=== PATIENT | male | born 1950 | race Caucasian/White ===

== ENCOUNTER 2016-07-15 12:41 | Emergency (ER) | payer BC ==
[2016-07-15] MEDS ORDERED: METOCLOPRAMIDE 5 MG/ML 2 ML VIAL IVP STA (14:05)
[2016-07-15] MEDS ORDERED: HYDROmorphone 1 MG/ML 1 ML SYRINGE IVP STA (14:05)
[2016-07-15] MEDS ORDERED: SODIUM CHLORIDE 0.9% 1,000 ML IV ONE (14:27)
[2016-07-15 14:30] LABS: Basophils # (A) 0.1 k/uL (0-0.2); Basophils % (A) 0 %; CH 30.1; Eosinophils % (A) 0 %; HCT 47.2 % (39.0-53.0); HDW 2.44; Luc # (Auto) 0.06; Luc % (Auto) 0; Lymphocytes # (A) 0.6 k/uL (1.0-4.8); Lymphocytes % (A) 4 %; MCHC 33.8 g/dL (31.0-37.0); MCV 88.8 fL (80.0-100.0); Mean Platelet Volume 7.8; Monocytes # (A) 0.5 k/uL (0-1.0); Monocytes % (A) 3 %; Neutrophils # (A) 14.9 k/uL (1.3-7.7); Neutrophils % (A) 92 %; RBC 5.32 m/uL (4.30-5.90); RDW 12.5 % (11.5-15.5); WBC 16.2 k/uL (3.8-10.6); WBC (Perox) 15.56
[2016-07-15 14:39] LABS: ALT 32 U/L (21-72); AST 25 U/L (17-59); Alkaline Phosphatase 64 U/L (38-126); Amylase 70 U/L (30-110); Anion Gap 8 mmol/L; Blood Urea Nitrogen 26 mg/dL (9-20); Calcium 9.9 mg/dL (8.4-10.2); Carbon Dioxide 24 mmol/L (22-30); Chloride 111 mmol/L (98-107); Glucose 125 mg/dL (74-99); Non-African American GFR(MDRD) >60 (>60 ml/min/1.73 sqM); Potassium 4.5 mmol/L (3.5-5.1); Sodium 143 mmol/L (137-145); Total Bilirubin 0.8 mg/dL (0.2-1.3); Total Protein 7.4 g/dL (6.3-8.2)
--- NOTE | 2016-07-15 14:39 | ED ---
General Adult HPI - General Chief complaint: Abdominal Pain Stated complaint: Abd/Side Pain - Kidney Stones Time Seen by Provider: 07/15/16 13:31 Source: patient, family, RN notes reviewed Mode of arrival: wheelchair Limitations: no limitations - History of Present Illness Initial comments: Chief complaint history of present illness a 66-year-old male here with acute onset of discomfort starting at 6 AM to his left flank radiating around toward the left lower quadrant. He's noticed some blood in the urine when he urinated this morning. He does have a history of having had kidney stones in the past, last was 15 years ago. He's passed stones over 6 times in his life. He became nauseated and vomited at home. Patient denies fever. - Related Data Home Medications Medication Instructions Recorded Confirmed Aspirin 325 mg PO HS 04/09/15 07/15/16 Hydrocodone/Acetaminophen 1 tab PO DAILY PRN 04/09/15 07/15/16 [Hydrocodon-Acetaminophn 10-325] Metoprolol Tartrate [Metoprolol 25 mg PO BID 04/09/15 07/15/16 Tartrate] Simvastatin [Simvastatin] 40 mg PO HS 04/09/15 07/15/16 Previous Rx's Medication Instructions Recorded Hydrocodone/Acetaminophen [[place] 1 each PO Q6HR PRN #30 tab 07/15/16 5-325] Ondansetron Odt [Zofran ODT] 4 mg PO Q8HR PRN #10 tab 07/15/16 Tamsulosin [Flomax] 0.4 mg PO DAILY #14 cap 07/15/16 Allergies Allergy/AdvReac Type Severity Reaction Status Date / Time No Known Allergies Allergy Verified 07/15/16 13:51 Review of Systems ROS Statement: Those systems with pertinent positive or pertinent negative responses have been documented in the HPI. Review of systems. No headache or visual acuity changes no chest pain or shortness of breath. The patient has left flank discomfort atrial toward the front. Nausea vomiting. No diarrhea. No complaint of any neuro deficits. All systems are reviewed. Past medical problems significant for frequent kidney stones. The last time 15 years ago. Patient also has hyperlipidemia, hypertension, and [place] 8 years ago, chronic back pain. And history of hepatitis. He reported when he was younger he did do IV drugs. He was told to talk her family doctor about hepatitis C testing as well. The patient's surgeries include tonsils, he's had 4 stents 2 different occasions. The patient's family history skin cancer and heart disease. Patient denies ALLERGIES uses medical marijuana card. Drinks alcohol occasionally socially. Advised with hepatitis alcohol should be stopped entirely. ROS Other: All systems not noted in ROS Statement are negative. Past Medical History Past Medical History: Hyperlipidemia, Hypertension, Myocardial Infarction ([place]), Musculoskeletal Disorder, Osteoarthritis ([place]) Additional Past Medical History / Comment(s): HX OF HEPATITIS, BACK PAIN, SCOLIOSIS, TORN RIGHT ROTATOR CUFF. Last Myocardial Infarction Date:: 2008 History of Any Multi-Drug Resistant Organisms: None Reported Past Surgical History: Ear Surgery, Heart Catheterization With Stent Additional Past Surgical History / Comment(s): PLASTIC SURGERY ON EAR A CHILD., 2 HEART CATHS WITH STENTS. Past Anesthesia/Blood Transfusion Reactions: No Reported Reaction, Motion Sickness Date of Last Stent Placement:: 2008 Past Psychological History: No Psychological Hx Reported Smoking Status: Never smoker Past Alcohol Use History: Rare Past Drug Use History: Marijuana Additional Drug Use History / Comment(s): LAST MARIJUANA 04/08/2015 - Past Family History Father Family Medical History: Cancer, Coronary Artery Disease (CAD), Myocardial Infarction ([place]) Additional Family Medical History / Comment(s): SKIN CANCER Mother Family Medical History: Cancer Additional Family Medical History / Comment(s): SKIN CANCER General Exam - General Exam Comments Initial Comments: General: The patient is awake and alert, playing of nausea vomiting and left flank pain with red urine. All this started at 6 AM. No signs are temperature 98.3 pulse 90 respiratory rate 18 pulse ox 90% room air blood pressure 143/85 Eye: Pupils are equal, round and reactive to light, extra-ocular movements are intact ; there is normal conjunctiva bilaterally. No signs of icterus. Ears, nose, mouth and throat: There are moist mucous membranes and no oral lesions. Neck: The neck is supple, there is no tenderness or JVD. Cardiovascular: There is a regular rate and rhythm. No murmur, rub or gallop is appreciated. Respiratory: Lungs are clear to auscultation, respirations are non-labored, breath sounds are equal. No wheezes, stridor, rales, or rhonchi. Gastrointestinal: Soft, non-distended, non-tender abdomen without masses or organomegaly noted. There is no rebound or guarding present. Left CVA tenderness started this morning. No rash noted. Back: There is no tenderness to palpation in the midline. There is no obvious deformity. No rashes noted. No rashes noted. Early shingles was discussed. Musculoskeletal: Normal ROM, no tenderness, There is no pedal edema. There is no calf tenderness or swelling. Sensation intact. Pulses equal bilaterally 2+. Neurological: No neuro deficits. Alert and oriented. Skin: Skin is warm and dry and no rashes or lesions are noted. Limitations: no limitations Course Vital Signs 07/15/16 13:13 Temperature 98.3 F Pulse Rate 90 Respiratory 18 Rate Blood Pressure 143/85 O2 Sat by Pulse 98 Oximetry Medical Decision Making - Medical Decision Making Medical decision making the patient's white count 16.2 hemoglobin 16 hematocrit 47. Potassium is 4.5, BUN 26 creatinine 1.1 and GFR greater than 60. Glucose 125. Urine shows greater than 180 rbc's. Patient was made comfortable with IV fluids and analgesics and antinausea medication. X-ray of the abdomen was done and reviewed radiologist his impression is scattered gas is seen in nondistended small bowel loops. Gas and fecal material seen in nondistended colon. No suspicious calcifications are clearly seen. There is level convex scoliosis centered at L3 level. A vascular calcification overlies the mid abdomen. Lung bases are grossly clear. No pneumoperitoneum is seen. Impression; overall nonobstructive bowel gas pattern and no definite nephrolithiasis. As read by Dr. jeffrey Is time patient's feeling much better no nausea no vomiting minimal to no discomfort. The patient be placed on Flomax, Zofran to control nausea and [place] for pain. A strainer will be given to the patient strain the urine. He was advised to call follow-up family physician and on-call urologist if the pain were to persist. He's report fever to his family doctor or return emergency room. - Lab Data Result diagrams: 07/15/16 13:55 07/15/16 13:55 Lab Results 07/15/16 07/15/16 07/15/16 Range/Units 13:55 13:55 14:56 WBC 16.2 H (3.8-10.6) k/uL RBC 5.32 (4.30-5.90) m/uL Hgb 16.0 (13.0-17.5) gm/dL Hct 47.2 (39.0-53.0) % MCV 88.8 (80.0-100.0) fL MCH 30.0 (25.0-35.0) pg MCHC 33.8 (31.0-37.0) g/dL RDW 12.5 (11.5-15.5) % Plt Count 151 (150-450) k/uL Neutrophils % 92 % Lymphocytes % 4 % Monocytes % 3 % Eosinophils % 0 % Basophils % 0 % Neutrophils # 14.9 H (1.3-7.7) k/uL Lymphocytes # 0.6 L (1.0-4.8) k/uL Monocytes # 0.5 (0-1.0) k/uL Eosinophils # 0.0 (0-0.7) k/uL Basophils # 0.1 (0-0.2) k/uL Sodium 143 (137-145) mmol/L Potassium 4.5 (3.5-5.1) mmol/L Chloride 111 H (98-107) mmol/L Carbon Dioxide 24 (22-30) mmol/L Anion Gap 8 mmol/L BUN 26 H (9-20) mg/dL Creatinine 1.10 (0.66-1.25) mg/dL Est GFR (MDRD) Af Amer >60 (>60 ml/min/1.73 sqM) Est GFR (MDRD) Non-Af >60 (>60 ml/min/1.73 sqM) Glucose 125 H (74-99) mg/dL Calcium 9.9 (8.4-10.2) mg/dL Total Bilirubin 0.8 (0.2-1.3) mg/dL AST 25 (17-59) U/L ALT 32 (21-72) U/L Alkaline Phosphatase 64 (38-126) U/L Total Protein 7.4 (6.3-8.2) g/dL Albumin 4.4 (3.5-5.0) g/dL Amylase 70 (30-110) U/L Lipase 106 (23-300) U/L Urine Color Yellow Urine Appearance Clear (Clear) Urine pH 6.5 (5.0-8.0) Ur Specific [place] 1.017 (1.001-1.035) Urine Protein Trace H (Negative) Urine Glucose (UA) Negative (Negative) Urine Ketones 1+ H (Negative) Urine Blood Moderate H (Negative) Urine Nitrite Negative (Negative) Urine Bilirubin Negative (Negative) Urine Urobilinogen <2.0 (<2.0) mg/dL Ur Leukocyte Esterase Negative (Negative) Urine RBC >182 H (0-5) /hpf Urine WBC 5 (0-5) /hpf Urine Mucus Occasional H (None) /hpf Disposition Clinical Impression: Kidney stone on left side Disposition: HOME SELF-CARE Condition: Fair Instructions: Kidney Stones (ED) Additional Instructions: Increase fluids, take medications as directed. Return emergency room if he develop fever. Follow-up family doctor Prescriptions: Hydrocodone/Acetaminophen [[place] 5-325] 1 each PO Q6HR PRN #30 tab PRN Reason: Pain Ondansetron Odt [Zofran ODT] 4 mg PO Q8HR PRN #10 tab PRN Reason: Nausea Tamsulosin [Flomax] 0.4 mg PO DAILY #14 cap Time of Disposition: 17:21
[2016-07-15 15:15] LABS: Appearance,Urine Clear (Clear); Bilirubin,Urine Negative (Negative); Glucose,Urine (UA) Negative (Negative); Ketones,Urine 1+ (Negative); Leukocyte Esterase,Urine Negative (Negative); Mucus,Urine Occasional /hpf; Nitrite,Urine Negative (Negative); PH, Urine 6.5 (5.0-8.0); Particle Count 4035; Protein,Urine Trace (Negative); RBC,Urine >182 /hpf (0-5); Specific Gravity,Urine 1.017 (1.001-1.035); UA Billing (MACRO vs. MICRO) MICRO; Urobilinogen,Urine <2.0 mg/dL (<2.0); WBC,Urine 5 /hpf (0-5)
--- NOTE | 2016-07-15 15:15 | XR ---
EXAMINATION TYPE: XR KUB DATE OF EXAM: 07/15/2016 3:06 PM CLINICAL HISTORY: Right greater than left flank pain since this morning. TECHNIQUE: 2 upright KUB images of the abdomen are obtained. COMPARISON: None. FINDINGS: Scattered gas is seen in non-distended small bowel loops. Gas and fecal material is seen in non-distended colon. No suspicious calcifications are clearly seen. There is levoconvex scoliosis centered at L3 level. Vascular calcification overlies the mid abdomen. Lung bases are grossly clear. No pneumoperitoneum is seen. IMPRESSION: Overall nonobstructive bowel gas pattern. No definite nephrolithiasis.
[2016-07-15 17:34] VITALS: RESP 20
[2016-07-15 17:35] VITALS: BP 130/68; PULSE 89; TEMP 98.4
== END 2016-07-15 17:35 | disposition home or self-care (01) ==
LOC: EC 12:41
DX: N20.0 Calculus of kidney (principal); M41.86 Other forms of scoliosis, lumbar region; I87.8 Other specified disorders of veins; E78.5 Hyperlipidemia, unspecified; I10 Essential (primary) hypertension; M19.90 Unspecified osteoarthritis, unspecified site; I25.2 Old myocardial infarction; Z79.82 Long term (current) use of aspirin; Z79.899 Other long term (current) drug therapy
CPT/HCPCS: 99284; 96374; 96375; 96361; 36415; 80053; 82150; 83690; 85025; 81001; 87086; 74000; J2765; J1170

== ENCOUNTER → 2016-08-26 | Outpatient (CLI) | payer BC ==
--- NOTE | 2016-08-26 09:41 | US ---
EXAMINATION TYPE: US kidneys/renal and bladder DATE OF EXAM: 08/26/2016 COMPARISON: Previous study dated 10/27/2014. CLINICAL HISTORY: Renal Mass D41.02, R31.9 Hematuria. Left renal mass EXAM MEASUREMENTS: Right Kidney: 10.1 x 5.7 x 5.6 cm Left Kidney: 11.1 x 4.8 x 4.8 cm Right Kidney: 0.4cm echogenic focus mid pole Left Kidney: 1.3cm cystic area lateral inferior pole Bladder: wnl Bilateral Jets seen: yes There is a 1.2 cm mass in the lower pole of the left kidney, essentially unchanged from previous. The lesion identified on the right is believed to represent normal renal sinus fat. There is no evidence of hydronephrosis. IMPRESSION: STABLE LOWER POLE LESION OF THE LEFT KIDNEY.
== END | disposition home or self-care (01) ==
LOC: RADUSWWP 07:59
PROVIDERS: ATTEND Urology
DX: D41.02 Neoplasm of uncertain behavior of left kidney (principal); N28.9 Disorder of kidney and ureter, unspecified
CPT/HCPCS: 76770

== ENCOUNTER 2018-04-28 13:26 | Observation (INO) | payer MEDICARE, OTHER ==
[2018-04-28] MEDS ORDERED: ASPIRIN 81 MG PO STA (14:32)
[2018-04-28 15:05] LABS: Basophils % (A) 0 %; Eosinophils # (A) 0.2 k/uL (0-0.7); Eosinophils % (A) 2 %; HCT 46.8 % (39.0-53.0); HGB 15.7 gm/dL (13.0-17.5); Lymphocytes # (A) 1.8 k/uL (1.0-4.8); Lymphocytes % (A) 21 %; MCH 29.2 pg (25.0-35.0); MCHC 33.5 g/dL (31.0-37.0); MCV 87.3 fL (80.0-100.0); Mean Platelet Volume 7.2; Monocytes # (A) 0.6 k/uL (0-1.0); Monocytes % (A) 7 %; Neutrophils # (A) 5.9 k/uL (1.3-7.7); Neutrophils % (A) 68 %; Platelet Count 200 k/uL (150-450); RBC 5.36 m/uL (4.30-5.90); RDW 12.5 % (11.5-15.5); WBC 8.8 k/uL (3.8-10.6)
[2018-04-28 15:13] LABS: Amorphous Sediment,Urine Few /hpf; Appearance,Urine Cloudy (Clear); Bilirubin,Urine Negative (Negative); Blood,Urine Negative (Negative); Color,Urine Yellow; Glucose,Urine (UA) Negative (Negative); Ketones,Urine Negative (Negative); Leukocyte Esterase,Urine Negative (Negative); Mucus,Urine Rare /hpf; Nitrite,Urine Negative (Negative); PH, Urine 6.5 (5.0-8.0); Protein,Urine Negative (Negative); Specific Gravity,Urine 1.015 (1.001-1.035); Urobilinogen,Urine <2.0 mg/dL (<2.0); WBC,Urine <1 /hpf (0-5)
[2018-04-28 15:21] LABS: INR 0.9 (<1.2); Partial Thromboplastin Time 22.8 sec (22.0-30.0)
[2018-04-28 15:31] LABS: Albumin 4.1 g/dL (3.5-5.0); Calcium 9.7 mg/dL (8.4-10.2); Creatine Kinase 86 U/L (55-170); Magnesium 2.1 mg/dL (1.6-2.3); Potassium 4.4 mmol/L (3.5-5.1); Total Bilirubin 0.5 mg/dL (0.2-1.3)
--- NOTE | 2018-04-28 15:37 | XR ---
EXAMINATION TYPE: XR chest 2V DATE OF EXAM: 04/28/2018 COMPARISON: 01/18/2018 HISTORY: Chest pain for 3 weeks TECHNIQUE: Frontal and lateral views of the chest are obtained. FINDINGS: There is no focal air space opacity, pleural effusion, or pneumothorax seen. The cardiac silhouette size is within normal limits. The osseous structures are intact. Minimal multilevel dege nerative changes of the spine are noted as well as healed fracture deformities of the posterior lower right ribs IMPRESSION: No acute cardiopulmonary process.
[2018-04-28 15:42] LABS: Creatine Kinase MB 0.7 ng/mL (0.0-2.4); Troponin I <0.012 ng/mL (0.000-0.034)
--- NOTE | 2018-04-28 16:28 | ED ---
Chest Pain HPI - General Chief Complaint: Chest Pain Stated Complaint: Chest pain Time Seen by Provider: 04/28/18 14:03 Source: patient, RN notes reviewed, old records reviewed Mode of arrival: ambulatory Limitations: no limitations - History of Present Illness Initial Comments: Patient is a 7-year-old male with history of coronary artery disease presents to take 1 chest pain. He reports pain rated some left arm and does report increased fatigue first of breath on exertion. He has 4 stents placed 10 years ago, patient technology coordinator is Dr. Holguin. Patient reports she's had intermittent chest pain for one week. - Related Data Home Medications Medication Instructions Recorded Confirmed Metoprolol Tartrate 25 mg PO BID 04/09/15 01/19/18 Simvastatin 40 mg PO HS 04/09/15 01/19/18 Aspirin EC [Ecotrin Low Dose] 162 mg PO DAILY 01/18/18 01/19/18 Previous Rx's Medication Instructions Recorded Meclizine [Antivert] 12.5 mg PO Q8HR #15 tablet 01/19/18 Allergies Allergy/AdvReac Type Severity Reaction Status Date / Time No Known Allergies Allergy Verified 04/28/18 13:30 Review of Systems ROS Statement: Those systems with pertinent positive or pertinent negative responses have been documented in the HPI. ROS Other: All systems not noted in ROS Statement are negative. EKG Findings - EKG Comments: EKG Findings:: EKG shows sinus rhythm multiple [place] here for LVH. Inferior infarct age indeterminate. Abnormal EKG. Ventricular rate of 62 bpm. Will is 162. Respiration one week. QTQTC is 396/401. Past Medical History Past Medical History: Hyperlipidemia, Hypertension, Myocardial Infarction ([place]), Musculoskeletal Disorder, Osteoarthritis ([place]) Additional Past Medical History / Comment(s): HX OF HEPATITIS, BACK PAIN, SCOLIOSIS, TORN RIGHT ROTATOR CUFF. Last Myocardial Infarction Date:: 2008 History of Any Multi-Drug Resistant Organisms: None Reported Past Surgical History: Ear Surgery, Heart Catheterization With Stent Additional Past Surgical History / Comment(s): PLASTIC SURGERY ON EAR A CHILD., 2 HEART CATHS WITH STENTS. 4 stents Past Anesthesia/Blood Transfusion Reactions: Motion Sickness Date of Last Stent Placement:: 2008 Past Psychological History: No Psychological Hx Reported Smoking Status: Never smoker Past Alcohol Use History: Rare Past Drug Use History: Marijuana - Past Family History Father Family Medical History: Cancer, Coronary Artery Disease (CAD), Myocardial Infarction ([place]) Additional Family Medical History / Comment(s): SKIN CANCER Mother Family Medical History: Cancer Additional Family Medical History / Comment(s): SKIN CANCER General Exam - General Exam Comments Initial Comments: A pleasant 67-year-old male. Limitations: no limitations General appearance: alert, in no apparent distress Head exam: Present: atraumatic, normocephalic, normal inspection Eye exam: Present: normal appearance, PERRL, EOMI. Absent: scleral icterus, conjunctival injection, periorbital swelling ENT exam: Present: normal exam, mucous membranes moist Neck exam: Present: normal inspection. Absent: tenderness, meningismus, lymphadenopathy Respiratory exam: Present: normal lung sounds bilaterally. Absent: respiratory distress, wheezes, rales, rhonchi, stridor Cardiovascular Exam: Present: regular rate, normal rhythm, normal heart sounds. Absent: systolic murmur, diastolic murmur, rubs, gallop, clicks GI/Abdominal exam: Present: soft, normal bowel sounds. Absent: distended, tenderness, guarding, rebound, rigid Extremities exam: Present: normal inspection, full ROM, normal capillary refill. Absent: tenderness, pedal edema, joint swelling, calf tenderness Back exam: Present: normal inspection Neurological exam: Present: alert, oriented X3, CN II-XII intact Psychiatric exam: Present: normal affect, normal mood Skin exam: Present: warm, dry, intact, normal color. Absent: rash Course Vital Signs 04/28/18 04/28/18 04/28/18 13:27 15:00 15:30 Temperature 98.6 F Pulse Rate 65 60 66 Respiratory 18 Rate Blood Pressure 143/86 143/91 123/90 O2 Sat by Pulse 98 96 94 L Oximetry 04/28/18 04/28/18 16:00 16:30 Temperature Pulse Rate 60 Respiratory Rate Blood Pressure 132/82 130/84 O2 Sat by Pulse 98 95 Oximetry Chest Pain MDM - MDM 67-year-old male presents razor was with intermittent chest pain unstable angina. He sentences symptoms of been progressive for the past week. He reports emergency department today with continued chest pain. EKG does show some increased T-wave inversion over lead 3. Patient reports he has not had a stress test and quite some time. He does have history of coronary artery disease and had [address] Holguin approximately 10 years ago. At this time Patient will be admitted for repeat troponins and ACS evaluation. Consult to cardiology. Disposition Clinical Impression: Chest pain Disposition: ADMITTED IP TO THIS HOSP Condition: Stable Is patient prescribed a controlled substance at d/c from ED?: No Referrals: Atilio Lott MD [Primary Care Provider] - 1-2 days Time of Disposition: 17:31
[2018-04-28] MEDS ORDERED: NITROGLYCERIN SL TABS 0.4 MG TAB SUBLINGUAL PRN (17:31)
[2018-04-28 20:13] VITALS: BMI 26.6
[2018-04-28] MEDS ORDERED: ASPIRIN 81 MG PO SCH (21:00)
[2018-04-28] MEDS: METOPROLOL TARTRATE 25 MG TAB PO SCH (21:10)
[2018-04-28 21:45] LABS: Creatine Kinase 69 U/L (55-170)
[2018-04-28 21:56] LABS: Creatine Kinase MB 0.6 ng/mL (0.0-2.4); Troponin I <0.012 ng/mL (0.000-0.034)
[2018-04-29 03:26] LABS: Cholesterol 234 mg/dL (<200); HDL Cholesterol 40 mg/dL (40-60); LDL Cholesterol,Calculated 161 mg/dL (0-99); Triglycerides 167 mg/dL (<150)
[2018-04-29 03:34] LABS: Creatine Kinase 77 U/L (55-170)
[2018-04-29 03:46] LABS: Creatine Kinase MB 0.6 ng/mL (0.0-2.4); Troponin I <0.012 ng/mL (0.000-0.034)
[2018-04-29] MEDS ORDERED: ASPIRIN 325 MG TAB PO SCH (09:00)
--- NOTE | 2018-04-29 09:30 | CONS ---
CONSULTATION Mr. Araya is a 67-year-old male with history of hypertension who presented to the emergency room with symptoms of chest discomfort. The patient has a known history of coronary artery disease, underwent stenting about 10 years ago, has been followed in the past by Dr. Holguin, but has not seen him in about a year. He presented with symptoms of chest discomfort. The discomfort has been going on for the last week, at times, worse in certain position. It is not associated with physical activity, not associated with dyspnea, dizziness or palpitation. He is active physically without significant difficulty. He feels the discomfort is worse when he lays supine, better in certain positions. He had an echocardiogram in January of last year that revealed an ejection fraction of 50% to 55% with no significant valvular disease. The patient denies any PND, orthopnea, or peripheral edema. His coronary risk factors are remarkable for hypertension he is nondiabetic, nonsmoker. MEDICATION: At home include aspirin, metoprolol tartrate 25 mg twice a day. REVIEW OF SYSTEMS: Respiratory system: He has no documented history of asthma, emphysema or bronchitis. GI system: No recent GI bleed. No peptic ulcer disease. system: No dysuria or hematuria. Nervous system: No stroke or seizure. PHYSICAL EXAMINATION: He is a 67-year-old male, alert, oriented, in no apparent distress. Blood pressure 115/81 with heart rate in the 60s. HEAD: Normocephalic. Eyes sclerae anicteric. Neck good carotid upstroke. No bruit. No jugular venous distention. Lungs clear to auscultation. Heart regular rate and rhythm, S1, S2. No S3. No S4. Systolic murmur. ABDOMEN: Soft, nontender. Positive bowel sounds. No organomegaly. EXTREMITIES: No edema. Intact distal pulses. LAB DATA: Lab data revealed troponin less than 0.012 for 3 samples. BUN and creatinine of 27 and 1.02. Cholesterol 234, LDL of 161, hemoglobin of 15.7. EKG revealed a sinus mechanism. Normal axis and intervals with T-wave inversion in the inferior leads with evidence of inferior myocardial infarction. IMPRESSION: 1. Chest discomfort, has some atypical features for ischemic heart disease in a patient with known history of coronary disease. 2. Hyperlipidemia not treated. 3. Hypertension. 4. Prior stenting done 10 years ago, probably to the right coronary artery in the setting of myocardial infarction. RECOMMENDATION: From the cardiac standpoint, I will add to his regimen atorvastatin 40 mg daily. I have recommended proceeding with myocardial perfusion imaging as well as an echocardiogram to further assess his status and guide his treatment. The rationale behind the plan was discussed with him in full understanding and agreement. If he has evidence of inducible ischemia, then coronary angiography will be needed. Thank you for this consult. We will follow with you. MMERENL / IJN: [id number] /
[2018-04-29] MEDS: METOPROLOL TARTRATE 25 MG TAB PO SCH ×2 (09:31→20:24)
[2018-04-29] MEDS ORDERED: ALPRAZolam 0.25 MG TAB PO PRN (14:32)
[2018-04-29] MEDS ORDERED: MELATONIN 3 MG TABLET PO PRN (14:32)
[2018-04-29] MEDS ORDERED: MAGNESIUM HYDROXIDE 2,400 MG/10 ML CUP PO PRN (14:32)
[2018-04-29] MEDS ORDERED: NALOXONE 0.4 MG/ML 1 ML VIAL IV PRN (14:32)
[2018-04-29] MEDS ORDERED: ACETAMINOPHEN TAB 325 MG TAB PO PRN (14:32)
[2018-04-29] MEDS ORDERED: ONDANSETRON 4 MG/2 ML VIAL IVP PRN (14:32)
[2018-04-29] MEDS ORDERED: LACTULOSE 20 GM/30 ML CUP PO PRN (14:32)
[2018-04-29] MEDS ORDERED: CALCIUM CARBONATE 500 MG CHEWABLE PO PRN (14:32)
--- NOTE | 2018-04-29 15:12 | HP ---
HISTORY AND PHYSICAL DATE OF ADMISSION: 04/28/2018 DATE OF SERVICE: 04/29/18. PRESENT COMPLAINT: Chest pain. HISTORY OF PRESENTING COMPLAINT: This is a very pleasant 67-year-old patient follows with Dr. Damian Lott out of [facility]. Chronic stable medical conditions include hypertension, hyperlipidemia, osteoarthritis. The patient had coronary artery disease with stent about 10 years ago. The patient has not had any further acute coronary syndrome since then. The patient for 2 weeks has been having left precordial chest pain, present on and off. It seems to be more when he is reclining and somewhat better when he is sitting up. He is occasionally short of breath. No fever. No chills. No swelling of the lower extremity. He states he feels slightly somewhat like his prior heart attack he had several years ago, decided to present to the ER. The patient admitted for further cardiac workup. The patient is currently chest pain free. The patient's troponins were negative. The pain does not radiate. There was no dizziness. No lightheadedness. REVIEW OF SYSTEMS: CONSTITUTIONAL: None. HEENT: None. CARDIOVASCULAR: As above RESPIRATORY: None. GASTROINTESTINAL: None. GENITOURINARY: None. MUSCULOSKELETAL: Pain in the joints. DERMATOLOGICAL, HEMATOLOGIC, LYMPHATIC: none. PSYCHIATRY none. NEUROLOGICAL: None. PAST MEDICAL HISTORY: Hyperlipidemia, hypertension, coronary artery disease with stent, osteoarthritis, hepatitis, right rotator cuff torn. PAST SURGICAL HISTORY: Cardiac cath with stent 10 years ago. Plastic surgery in the ear as a child. Stents in 2008. SOCIAL HISTORY: Does not smoke. Alcohol rarely. Lives with this girlfriend, is a house painter helper by trade. FAMILY HISTORY: Coronary artery disease with skin cancer. HOME MEDICATIONS: 1. Metoprolol 25 mg b.i.d. 2. Aspirin 81 mg b.i.d. ALLERGIES: None. PHYSICAL EXAMINATION: VITAL SIGNS: Vital signs on presentation: Temperature 98.6, pulse 55, respiratory 18, blood pressure 143/86, pulse ox 98% on room air. GENERAL APPEARANCE: Average built, sitting up in a chair. Comfortable. EYES: Pupils equal. Conjunctivae normal. HEENT: External appearance of nose and ears normal. Oral cavity normal. NECK: JVD not raised. Mass not palpable. RESPIRATORY: Effort normal. LUNGS: Fair air entry. CARDIOVASCULAR: First and second sounds normal. No edema. ABDOMEN: Soft, nontender. Liver and spleen not palpable. LYMPHATICS: No lymph nodes palpable in the neck and axilla. PSYCHIATRY: Alert and oriented x3. Mood and affect normal. NEUROLOGICAL: Pupils equal. Cranial nerves grossly intact. Power and sensation grossly intact. INVESTIGATIONS: White count 8.8, hemoglobin 15.7, potassium 4.4, BUN 27, creatinine 1.02. Troponin x3 negative. LDL 161. EKG tracing personally reviewed by me shows normal sinus rhythm with deep Q-waves in the inferior leads. Chest x-ray film personally reviewed by me shows borderline cardiomegaly. Lung hart are clear. ASSESSMENT: 1. Anterior chest wall pain in a patient with known coronary artery disease, somewhat atypical but given his symptoms, need to rule out underlying cardiac ischemia. 2. Essential hypertension. 3. Hyperlipidemia. 4. Coronary artery with stent 10 years ago. 5. Primary osteoarthritis. PLAN: Home medications resumed. Serial cardiac enzymes were noted. The patient also put on Lipitor. Seen by Cardiology, Dr. Solis. The patient will be proceeding with a nuclear stress test tomorrow and an echocardiogram. Care was discussed with the patient. Copy to Dr. Damian Lott [facility]. MMODL / IJN: [id number] /
[2018-04-29] MEDS: ENOXAPARIN 40 MG/0.4 ML SYRINGE SQ SCH (15:13)
[2018-04-30] MEDS ORDERED: ATORVASTATIN 40 MG TAB PO SCH (09:00)
[2018-04-30] MEDS ORDERED: ASPIRIN 81 MG PO SCH (09:00)
--- NOTE | 2018-04-30 10:48 | ECHOF ---
Referral Reason:cp MEASUREMENTS -------- HEIGHT: 175.3 cm WEIGHT: 81.6 kg BP: 126/75 RVIDd: 3.1 cm (< 3.3) IVSd: 1.3 cm (0.6 - 1.1) LVIDd: 4.1 cm (3.9 - 5.3) LVPWd: 1.3 cm (0.6 - 1.1) IVSs: 1.7 cm LVIDs: 3.0 cm LVPWs: 1.8 cm LA Diam: 3.5 cm (2.7 - 3.8) LAESV Index (A-L): 16.53 ml/m Ao Diam: 3.4 cm (2.0 - 3.7) AV Cusp: 2.3 cm (1.5 - 2.6) MV EXCURSION: 13.991 mm (> 18.000) MV EF SLOPE: 72 mm/s (70 - 150) EPSS: 0.7 cm MV E Ahmet: 0.59 m/s MV DecT: 221 ms MV A Ahmet: 0.58 m/s MV E/A Ratio: 1.02 AR PHT: 780 ms RAP: 5.00 mmHg RVSP: 15.84 mmHg FINDINGS -------- Sinus rhythm. This was a technically good study. The left ventricular size is normal. There is mild concentric left ventricular hypertrophy. Overa ll left ventricular systolic function is normal with, an EF between 60 - 65 %. The right ventricle is normal in size. Normal LA size by volume 22+/-6 ml/m2. The right atrium is normal in size. The aortic valve is trileaflet and appears structurally normal. There is mild aortic regurgitation. The mitral valve is normal. Mild tricuspid regurgitation present. Right ventricular systolic pressure is normal at < 35 mmHg. Trace/mild (physiologic) pulmonic regurgitation. The aortic root size is normal. Normal inferior vena cava with normal inspiratory collapse consistent with estimated right atrial pre ssure of 5 mmHg. There is no pericardial effusion. CONCLUSIONS -------- 1. Sinus rhythm. 2. This was a technically good study. 3. The left ventricular size is normal. 4. There is mild concentric left ventricular hypertrophy. 5. Overall left ventricular systolic function is normal with, an EF between 60 - 65 %. 6. The right ventricle is normal in size. 7. Normal LA size by volume 22+/-6 ml/m2. 8. The right atrium is normal in size. 9. The aortic valve is trileaflet and appears structurally normal. 10. There is mild aortic regurgitation. 11. The mitral valve is normal. 12. Mild tricuspid regurgitation present. 13. Right ventricular systolic pressure is normal at < 35 mmHg. 14. Trace/mild (physiologic) pulmonic regurgitation. 15. The aortic root size is normal. 16. Normal inferior vena cava with normal inspiratory collapse consistent with estimated right atrial pressure of 5 mmHg. 17. There is no pericardial effusion. KAYAK MAKER: Vilma Ruiz RDCS
[2018-04-30] MEDS: METOPROLOL TARTRATE 25 MG TAB PO SCH (10:50)
[2018-04-30] MEDS: ENOXAPARIN 40 MG/0.4 ML SYRINGE SQ SCH (10:50)
--- NOTE | 2018-04-30 11:02 | P.PN ---
Subjective This is a pleasant 67-year-old male past medical history significant for hypertension and coronary artery disease. He follows in the office with Dr. Holguin. He presented to the hospital with symptoms of chest discomfort. This pain has been going on for approximately one week and has some association with position changes. He continues to feel a vague sharp discomfort in the midsternal region with no radiation to the arm, back, neck or jaw. He denies associated shortness of breath, dizziness, palpitations, nausea, vomiting or diaphoresis. Echocardiogram obtained reveals preserved left ventricular systolic function with ejection fraction 60-65%, mild tricuspid regurgitation noted. Blood pressure 112/70 heart rate 64 afebrile maintaining oxygen saturation on room air. He underwent Cardiolite stress test this morning, results pending. Currently maintained on aspirin 81 mg daily, atorvastatin 40 mg daily, Lopressor 25 mg twice a day. Atorvastatin was started yesterday for elevated cholesterol. GENERAL: Well-appearing, well-nourished and in no acute distress. NECK: Supple without JVD or thyromegaly. LUNGS: Breath sounds clear to auscultation bilaterally. Respiration equal and unlabored. No wheezes, rales or rhonchi. HEART: Regular rate and rhythm without murmurs, rubs or gallops. S1 and S2 heard. EXTREMITIES: Normal range of motion, no edema. No clubbing or cyanosis. Peripheral pulses intact. ASSESSMENT Chest pain, atypical. Acute coronary event has been ruled out. Dyslipidemia, uncontrolled. Statin started yesterday. History of coronary artery disease status post stent placement approximately 10 years ago to the RCA in the setting of myocardial infarction Hypertension PLAN Echocardiogram has been obtained and reviewed. Stress test has been performed and will be reviewed. If stress test is normal he is stable from a cardiac perspective to be discharged home and follow-up with Dr. Holguin in 2-3 weeks. If abnormal we will consider coronary angiography. Continue aspirin and lopressor as previously ordered. Nurse Practitioner note has been reviewed, I agree with a documented findings and plan of care. Patient was seen and examined. Objective - Vital Signs Vital signs: Vital Signs Temp 97.8 F 04/30/18 07:35 Pulse 64 04/30/18 07:35 Resp 16 04/30/18 07:35 BP 112/70 04/30/18 07:35 Pulse Ox 95 04/30/18 07:35 Intake & Output 04/29/18 04/30/18 04/30/18 18:59 06:59 18:59 Weight 81.647 kg Other: Voiding Method Toilet Toilet # Voids 2 1 - Labs CBC & Chem 7: 04/28/18 14:30 04/28/18 14:30
--- NOTE | 2018-04-30 11:27 | NM ---
EXAMINATION TYPE: NM stress cardiolite complete DATE OF EXAM: 04/30/2018 COMPARISON: NONE HISTORY: Chest pain TECHNIQUE: After the intravenous administration of 9.92 mCi Tc 99m Sestamibi - Rest images obtained 45 minutes post injection. The patient exercised using a JULEE protocol and 1 minute prior to peak exercise was injected with 26 mCi Tc 99m Sestamibi - Stress images obtained 10 minutes post injection . FINDINGS: There is diminished radiotracer on resting and stress images within the inferior lateral wa ll in be some prior mild infarct. No stress-induced ischemic changes evident. Remaining radiotracer d istribution appears normal. Wall motion appears normal. Ejection fraction of 57% is normal. IMPRESSION: 1. Clinical consideration for prior infarct along the inferior lateral wall is recommended. Correlate with EKG changes. 2. No stress-induced ischemic changes.
--- NOTE | 2018-04-30 11:37 | EST ---
EXERCISE STRESS AGE: 67 SEX: M HT: 69" WT: 180 PROTOCOL: Cardiolite Oliver Stress Test STAGE: II DURATION OF EXERCISE: 8:45 HEART RATE REST: 60 BLOOD PRESSURE REST: 135/91 MAXIMUM HEART RATE ACHIEVED: 138 MAXIMUM BLOOD PRESSURE: 220/101 85% MPHR: 132 100% MPHR: 155 METS: 10.3 INDICATIONS: Chest pain. CLINICAL INFORMATION: Baseline EKG shows sinus rhythm, normal axis, normal intervals. Patient exercised on Oliver protocol for a total of 8 minutes and 45 seconds achieving 10 METS, 89% of predicted maximal heart rate without chest pain or diagnostic ST-segment depression. CONCLUSION: 1. Good exercise tolerance. 2. Negative stress test by EKG criteria. 3. Cardiolite portion of this stress test will be reported separately. MMODL / IJN: [id number] /
[2018-04-30 11:55] VITALS: RESP 18
[2018-04-30 16:01] VITALS: BP 117/74; PULSE 65; TEMP 98.3
--- NOTE | 2018-04-30 18:37 | DS ---
DISCHARGE SUMMARY DATE OF ADMISSION: 04/28/2018 DATE OF DISCHARGE: 04/30/2018 FINAL DIAGNOSES: 1. Anterior chest wall pain; could be musculoskeletal. 2. Essential hypertension. 3. Coronary artery disease with stent 10 years ago. 4. Hyperlipidemia. 5. Primary osteoarthritis. HOSPITAL COURSE: This patient presented with chest pain. Serial cardiac enzymes were negative. LDL came back at 161. The patient did undergo a Cardiolite stress test that did not show any stress-induced ischemia. Patient was seen by Dr. Solis and okayed to be discharged. I did have a lengthy talk with the patient and told him to see a washing and screening plant supervisor if the symptoms returned. In that case, he might need a cardiac catheterization. PHYSICAL EXAMINATION: Temperature 98.3, pulse 65, respiration 18, blood pressure 117/74. LUNGS: Fair air entry. CARDIOVASCULAR: First and second sounds normal. LABS: LDL is 161. Two-D echocardiogram shows EF 60% to 65%. The patient is asymptomatic. He is up and about at the time of discharge. DISCHARGE MEDICATIONS: 1. Metoprolol 25 mg b.i.d. 2. Aspirin 81 mg b.i.d. 3. Lipitor 40 mg p.o. daily. Follow up with Dr. Damian Lott in one week. Follow up with Dr. Yulia Holguin in 2 weeks. MMODL / IJN: [id number] /
== END 2018-04-30 17:59 | disposition home or self-care (01) ==
LOC: EC 13:26 → 1SOBS 16:40
PROVIDERS: ADMIT Hospitalist; ATTEND Hospitalist
DX: R07.89 Other chest pain (principal); I25.110 Atherosclerotic heart disease of native coronary artery with unstable angina pectoris; I10 Essential (primary) hypertension; M19.91 Primary osteoarthritis, unspecified site; E78.00 Pure hypercholesterolemia, unspecified; I36.1 Nonrheumatic tricuspid (valve) insufficiency; E78.5 Hyperlipidemia, unspecified; M41.9 Scoliosis, unspecified; K75.9 Inflammatory liver disease, unspecified; M75.101 Unspecified rotator cuff tear or rupture of right shoulder, not specified as traumatic; Z79.82 Long term (current) use of aspirin; Z79.899 Other long term (current) drug therapy; I25.2 Old myocardial infarction; Z95.5 Presence of coronary angioplasty implant and graft; Z82.49 Family history of ischemic heart disease and other diseases of the circulatory system; Z80.8 Family history of malignant neoplasm of other organs or systems
CPT/HCPCS: 96372 ×2; 99285; 36415; 93005; 93017; 93306; 83880; 80061; 80053; 82150; 82550 ×2; 82553 ×2; 83690; 83735; 84484 ×2; 85025; 85610; 85730; 81001; 71046; 78452; G0378 ×4; A9500; J1650 ×2

== ENCOUNTER → 2018-12-01 | Outpatient (CLI) | payer MEDICARE ==
[2018-12-01 16:56] LABS: African American GFR (CKD) 80.6 (60.0-200.0); Albumin 4.4 g/dL (3.80-4.90); Albumin/Globulin Ratio 2.44 (1.60-3.17); Anion Gap 7.8 mmol/L (4.00-12.00); BUN/Creat Ratio 28.18 Ratio (12.00-20.00); Calcium 9.3 mg/dL (8.7-10.3); Carbon Dioxide 29.2 mmol/L (21.6-31.8); Chol/HDL Ratio 3.6; Globulin 1.8 g/dL (1.6-3.3); LDL Cholesterol,Calculated 113.2 mg/dL (0.0-131.0); Non-African American GFR(CKD) 69.6 (60.0-200.0); Potassium 4.7 mmol/L (3.5-5.5); Total Bilirubin 0.5 mg/dL (0.2-1.2); Total Protein 6.2 g/dL (6.2-8.2); VLDL Calculation 24.8 mg/dL (5.00-40.00)
== END | disposition home or self-care (01) ==
LOC: LABWHC1 08:38
PROVIDERS: ATTEND Family Medicine
DX: Z00.01 Encounter for general adult medical examination with abnormal findings (principal)
CPT/HCPCS: 36415; 80053; 80061

== ENCOUNTER → 2019-08-07 | Outpatient (CLI) | payer MEDICARE ==
--- NOTE | 2019-08-07 11:11 | CT ---
EXAMINATION TYPE: CT urogram wo/w con DATE OF EXAM: 08/07/2019 COMPARISON: 04/21/2013 CT and renal ultrasound dated 09/11/2018 HISTORY: Hematuria for 5-[address] DLP: 2163 mGycm, Automated Exposure Control for Dose Reduction was Utilized. CONTRAST: CT scan of the abdomen and pelvis is performed with oral and without and with IV Contrast, patient in jected with 100 mL of Isovue 300. FINDINGS: LUNG BASES: Minimal bibasilar subsegmental dependent atelectasis. Partially visualized coronary arter y calcifications. LIVER/GB: Hepatic parenchyma is diffusely hypoattenuated in comparison to that of the spleen, most commonly seen in hepatic steatosis. This finding limits evaluation for hepatic masses. Too small to a ccurately characterizer 3 mm hepatic lesion is seen at the inferior margin of the right hepatic lobe on image 33. No intrahepatic biliary ductal dilatation. No cholelithiasis. PANCREAS: No significant abnormality is seen. SPLEEN: No significant abnormality is seen. ADRENALS: Benign adrenal gland adenoma is seen on the right measuring 1.3 cm having a precontrast Katina nsfield unit of approximately 2 and overall measuring smaller size in the prior exam of 2013. Left ad renal gland is unremarkable. KIDNEYS: At the location of the previously seen left renal mass on the exam of 04/21/2013 no persistent exophytic mass remains on all 3 phases. This is confirmed on coronal imaging. On the cortical medull mimi phase only there is a crescentic area of hypoattenuation around the renal cortex that measures on ly 3 mm in greatest thickness, possible scarring or artifact as this is not redemonstrated on the del ayed phase nor unenhanced phase. On liver windows only in the lateral left lower pole on delayed axial imaging only series 9 image 24 a very subtle area of hypoattenuation relative to the remainder of the left renal cortex is evident m easuring approximately 1.5 cm. This appears more inferior and less exophytic than the prior of 2013. However if this mass is the same as the prior exam, there would be no interval increase in size from 2014 favoring a benign etiology. Punctate sub-5 mm too small to accurately characterize bilateral chinmay al lesions are seen. The unenhanced images demonstrate no evidence of nephrolithiasis. No hydronephrosis is seen of either kidney. No uroepithelial thickening is seen. No perinephric fluid collection. The left ureter remain s largely unopacified on delayed imaging. There is nodular impression of the posterior urinary bladde r by the enlarged nodular prostate gland. Very tiny urachal remnant is incidentally seen. BOWEL: Very small hiatal hernia is redemonstrated. PROSTATE/SEMINAL VESICLES: Enlarged, heterogenous, and nodular impressing on the urinary bladder. LYMPH NODES: No greater than 1cm abdominal or pelvic lymph nodes are appreciated. OSSEOUS STRUCTURES: There is a levoscoliotic curvature of the lumbar spine. Minimal retrolisthesis is seen of L2 on L3 and L3 on L4. Extensive degenerative disease of the spine. OTHER: The abdominal aorta is tortuous in course. There is a chronic-appearing infrarenal dissection flap marked on images 45 through 47 of series 6. The abdominal aorta at this location is not aneurysm al measuring 2.2 x 2.4 cm. Calcifications are seen at the margin of this dissection flap. Moderate at herosclerosis of the abdominal aorta and its branches. IMPRESSION: 1. The previously seen exophytic left lower pole solid renal mass in 2014 is not clearly redemonstrat ed on all 3 phases. There is a crescentic hypoattenuated area near the site of the previously seen re nal lesion measuring only 3 mm, possible scarring. Just inferior to this there is a very subtle quest ionable approximately 1.5 cm renal lesion that does not appear the same location as the prior mass an d appears on only one phase of imaging, possible heterogenous renal enhancement rather than a true ma ss. 2. Suboptimal opacification of the left ureter to evaluate for filling defects. No uroepithelial thic kening. No periureteral fat stranding. No hydronephrosis or ureteral dilatation. 3. Dependent density along the posterior urinary bladder wall appears as nodular impression from an e nlarged and heterogenous prostate gland. 4. Chronic-appearing infrarenal abdominal aortic dissection. Medical management recommended at this t mich[place]. No aneurysmal dilatation.
== END | disposition home or self-care (01) ==
LOC: RADCTMAIN 08:41
PROVIDERS: ATTEND Urology
DX: N28.89 Other specified disorders of kidney and ureter (principal); N40.0 Benign prostatic hyperplasia without lower urinary tract symptoms; D41.02 Neoplasm of uncertain behavior of left kidney; R31.0 Gross hematuria; I71.02 Dissection of abdominal aorta
CPT/HCPCS: 82565; 84520; 74178; 36415; 74400; Q9967

== ENCOUNTER 2020-02-08 16:42 | Emergency (ER) | payer MEDICARE ==
[2020-02-08 16:47] VITALS: BP 169/79; PULSE 79; RESP 18; TEMP 97.1
[2020-02-08] MEDS ORDERED: DIPH,PERTUS(ACELL)TETVAC-LF 0.5 ML VIAL IM ONE (16:52)
[2020-02-08] MEDS ORDERED: IBUPROFEN 600 MG TAB PO STA (16:59)
--- NOTE | 2020-02-08 17:00 | ED ---
Wound/Laceration HPI - General Chief Complaint: Wound/Laceration Stated Complaint: Head laceration Time Seen by Provider: 02/08/20 16:48 Source: patient Mode of arrival: ambulatory Limitations: no limitations - History of Present Illness Initial Comments: Patient is a 69-year-old male presenting to the emergency Department with complaints of a laceration on the top of his head. Patient states they were cutting down some small tree branches when one hit the top of his head. Not lose consciousness, he denies having a headache only some very minor pain where the laceration is. He denies any neck pain, dizziness, lightheadedness. He denies being on blood thinners. He states he does not remember his last tetanus vaccine. He has no further complaints at this time. - Related Data Home Medications Medication Instructions Recorded Confirmed Metoprolol Tartrate 25 mg PO BID 04/09/15 04/28/18 Aspirin EC [Ecotrin Low Dose] 81 mg PO BID 01/18/18 04/28/18 Previous Rx's Medication Instructions Recorded Atorvastatin [Lipitor] 40 mg PO DAILY #30 tab 04/30/18 Allergies Allergy/AdvReac Type Severity Reaction Status Date / Time No Known Allergies Allergy Verified 02/08/20 16:47 Review of Systems ROS Statement: Those systems with pertinent positive or pertinent negative responses have been documented in the HPI. ROS Other: All systems not noted in ROS Statement are negative. Past Medical History Past Medical History: Coronary Artery Disease (CAD), Hyperlipidemia, Hypertension, Myocardial Infarction ([place]), Musculoskeletal Disorder, Osteoarthritis (OA) Additional Past Medical History / Comment(s): HX OF HEPATITIS, BACK PAIN, SCOLIOSIS, TORN RIGHT ROTATOR CUFF, RIB FX, SCOLIOSIS, HTN, LEFT KIDNEY CYST. Last Myocardial Infarction Date:: 2008 History of Any Multi-Drug Resistant Organisms: None Reported Past Surgical History: Ear Surgery, Heart Catheterization With Stent Additional Past Surgical History / Comment(s): PLASTIC SURGERY ON EAR A CHILD., 2 HEART CATHS WITH STENTS. 4 stents Past Anesthesia/Blood Transfusion Reactions: Motion Sickness Date of Last Stent Placement:: 2008 Past Psychological History: No Psychological Hx Reported Smoking Status: Never smoker Past Alcohol Use History: Rare Past Drug Use History: Marijuana - Past Family History Father History Unknown: Yes Family Medical History: Cancer, Coronary Artery Disease (CAD), Myocardial Infarc tion ([place]) Additional Family Medical History / Comment(s): SKIN CANCER Mother History Unknown: Yes Family Medical History: Cancer Additional Family Medical History / Comment(s): SKIN CANCER General Exam - General Exam Comments Initial Comments: GENERAL: Patient is well-developed and well-nourished. Patient is nontoxic and in no acute distress. HEAD: Atraumatic, normocephalic. EYES: Pupils equal round and reactive to light, extraocular movements intact, sclera anicteric, conjunctiva are normal. Eyelids were unremarkable. ENT: TMs normal, nares patent, oropharynx clear without exudates. Moist mucous membranes. NECK: Normal range of motion, supple without lymphadenopathy or JVD. LUNGS: Unlabored respirations. Breath sounds clear to auscultation bilaterally and equal. No wheezes rales or rhonchi. HEART: Regular rate and rhythm without murmurs, rubs or gallops. ABDOMEN: Soft, nontender, normoactive bowel sounds. No guarding, no rebound. No masses appreciated. : Deferred MUSCULOSKELETAL: Normal extremities with adequate strength and normal range of motion, no pitting or edema. No clubbing or cyanosis. NEUROLOGICAL: Patient is alert and oriented x 3. Motor and sensory are also intact. Cranial nerves II through XII grossly intact. Symmetrical smile. Normal speech, normal gait. PSYCH: Normal mood, normal affect. SKIN: Warm, Dry, normal turgor, no rashes. Patient has a 2 cm laceration to the top right side of his head, bleeding is controlled at the bandage. Limitations: no limitations Course Vital Signs 02/08/20 16:43 Temperature 97.1 F L Pulse Rate 79 Respiratory 18 Rate Blood Pressure 169/79 O2 Sat by Pulse 99 Oximetry Procedures - Laceration Laceration #1 Consent Obtained: verbal consent Indication: laceration Site: scalp Size (cm): 2 Description: linear Depth: simple, single layer Pre-repair: irrigated extensively Patient Tolerated Procedure: well Additional Comments: Patient's wound was cleaned and closed with 2 ninoska. Patient tolerated procedure well. Medical Decision Making - Medical Decision Making Patient is a 69-year-old male here with a 2 cm laceration to the top right side of his head from a small tree branch that they were cutting down. There is no loss of consciousness, no headache, no dizziness. His exam is unremarkable other than the laceration. He is not on blood thinners. His tetanus vaccine was updated today. His wound was cleaned, closed with 2 ninoska. Patient tolerated procedure well. He is stable for discharge. He needs to have ninoska removed in 7 days. Return parameters were discussed with the patient and he verbalized understanding. Disposition Clinical Impression: Laceration of scalp Disposition: HOME SELF-CARE Condition: Stable Instructions (If sedation given, give patient instructions): Staple Care (ED) Additional Instructions: Please return to the Emergency Department if symptoms worsen or any other concerns. Keep area clean, may shower as normal. Ninoska need to be removed in 7-10 days. Is patient prescribed a controlled substance at d/c from ED?: No Referrals: Atilio Lott MD [Primary Care Provider] - 1-2 days
== END 2020-02-08 17:10 | disposition home or self-care (01) ==
LOC: EC 16:42
DX: S01.01XA Laceration without foreign body of scalp, initial encounter (principal); I25.10 Atherosclerotic heart disease of native coronary artery without angina pectoris; I10 Essential (primary) hypertension; E78.5 Hyperlipidemia, unspecified; I25.2 Old myocardial infarction; Z79.82 Long term (current) use of aspirin; Z79.899 Other long term (current) drug therapy; Z95.5 Presence of coronary angioplasty implant and graft; W20.8XXA Other cause of strike by thrown, projected or falling object, initial encounter
CPT/HCPCS: 12001; 90471; 90715; 99282

== ENCOUNTER → 2020-09-09 | Outpatient (CLI) | payer MEDICARE ==
[2020-09-09 18:47] LABS: HCT 46.9 % (39.6-50.0); MCH 28.6 pg (27.0-32.0); MCV 89.5 fL (80.0-97.0); Mean Platelet Volume 11.4 fL (9.5-12.2); Platelet Count 191 X 10*3/uL (140-440); RBC 5.24 X 10*6/uL (4.40-5.60); RDW 12.4 % (11.5-14.5); WBC 8.46 X 10*3/uL (4.50-10.00)
[2020-09-10 01:22] LABS: African American GFR (CKD) 89.2 (60.0-200.0); Calcium 9.2 mg/dL (8.7-10.3); Chol/HDL Ratio 3.7; LDL Cholesterol,Calculated 109.2 mg/dL (0.0-131.0); Potassium 4.3 mmol/L (3.5-5.5); VLDL Calculation 25.8 mg/dL (5.00-40.00)
== END | disposition home or self-care (01) ==
LOC: LABWHC1 11:17
PROVIDERS: ATTEND Internal Medicine Interventional Cardiology
DX: E78.5 Hyperlipidemia, unspecified (principal); I25.10 Atherosclerotic heart disease of native coronary artery without angina pectoris
CPT/HCPCS: 36415; 80048; 80061; 82550; 84450; 84460; 85027

== ENCOUNTER 2020-09-17 15:42 | Inpatient (IN) | payer MEDICARE ==
[2020-09-17 16:30] LABS: Basophils % (A) 0 %; Eosinophils # (A) 0.2 k/uL (0-0.7); Eosinophils % (A) 2 %; HCT 46.1 % (39.0-53.0); HGB 15.3 gm/dL (13.0-17.5); Lymphocytes # (A) 1.9 k/uL (1.0-4.8); Lymphocytes % (A) 20 %; MCH 29.3 pg (25.0-35.0); MCHC 33.3 g/dL (31.0-37.0); MCV 88.2 fL (80.0-100.0); Monocytes # (A) 0.8 k/uL (0-1.0); Monocytes % (A) 8 %; Neutrophils # (A) 6.4 k/uL (1.3-7.7); Neutrophils % (A) 68 %; Platelet Count 176 k/uL (150-450); RBC 5.22 m/uL (4.30-5.90); RDW 13.1 % (11.5-15.5); WBC 9.5 k/uL (3.8-10.6)
[2020-09-17 16:36] LABS: ALT 20 U/L (4-49); AST 27 U/L (17-59); African American GFR (CKD) >90 (>60 ml/min/1.73 sqM); Albumin 4.2 g/dL (3.5-5.0); Alkaline Phosphatase 76 U/L (38-126); Anion Gap 6 mmol/L; Blood Urea Nitrogen 29 mg/dL (9-20); Calcium 9.2 mg/dL (8.4-10.2); Carbon Dioxide 26 mmol/L (22-30); Chloride 110 mmol/L (98-107); Creatine Kinase 94 U/L (55-170); Glucose 101 mg/dL (74-99); Lipase 163 U/L (23-300); Magnesium 2.1 mg/dL (1.6-2.3); Non-African American GFR(CKD) 84 (>60 ml/min/1.73 sqM); Potassium 4.4 mmol/L (3.5-5.1); Sodium 142 mmol/L (137-145); Total Bilirubin 0.5 mg/dL (0.2-1.3); Total Protein 6.7 g/dL (6.3-8.2)
--- NOTE | 2020-09-17 16:43 | ED ---
Chest Pain HPI - General Chief Complaint: Chest Pain Stated Complaint: Chest pain Time Seen by Provider: 09/17/20 16:04 Source: patient, RN notes reviewed Mode of arrival: ambulatory Limitations: no limitations - History of Present Illness Initial Comments: This is a 70-year-old male with a history for cardiac stents in the past who states her last several days he's been having intermittent episodes of midsternal chest pain sometimes sharp in nature 4-5 in severity out of 10. He states feels identical before his first heart attack 12 years ago. He is currently pain-free no fevers chills nausea vomiting sweats cough. Patient does state he's also been having some intermittent episodes of dizziness and he's not sure if is related to the chest pain or not. He is currently symptom-free MD Complaint: chest pain - Related Data Home Medications Medication Instructions Recorded Confirmed Metoprolol Tartrate 25 mg PO BID 04/09/15 09/17/20 Aspirin EC [Ecotrin Low Dose] 162 mg PO DAILY 01/18/18 09/17/20 Atorvastatin [Lipitor] 40 mg PO HS 09/17/20 09/17/20 Allergies Allergy/AdvReac Type Severity Reaction Status Date / Time No Known Allergies Allergy Verified 09/17/20 17:00 Review of Systems ROS Statement: Those systems with pertinent positive or pertinent negative responses have been documented in the HPI. ROS Other: All systems not noted in ROS Statement are negative. EKG Findings - EKG Results: EKG: interpreted by SHONDA, sinus rhythm (Sinus bradycardia rate 48. Interval 170 QRS 96 he says QTC 426/380) Past Medical History Past Medical History: Coronary Artery Disease (CAD), Hyperlipidemia, Hypertension, Myocardial Infarction ([place]), Musculoskeletal Disorder, Osteoarthritis (OA) Additional Past Medical History / Comment(s): HX OF HEPATITIS, BACK PAIN, SCOLIOSIS, TORN RIGHT ROTATOR CUFF, RIB FX, SCOLIOSIS, HTN, LEFT KIDNEY CYST. Last Myocardial Infarction Date:: 2008 History of Any Multi-Drug Resistant Organisms: None Reported Past Surgical History: Ear Surgery, Heart Catheterization With Stent Additional Past Surgical History / Comment(s): PLASTIC SURGERY ON EAR A CHILD., 2 HEART CATHS WITH STENTS. 4 stents Past Anesthesia/Blood Transfusion Reactions: Motion Sickness Date of Last Stent Placement:: 2008 Past Psychological History: No Psychological Hx Reported Smoking Status: Never smoker Past Alcohol Use History: Rare Past Drug Use History: Marijuana - Past Family History Father History Unknown: Yes Family Medical History: Cancer, Coronary Artery Disease (CAD), Myocardial Infarction ([place]) Additional Family Medical History / Comment(s): SKIN CANCER Mother History Unknown: Yes Family Medical History: Cancer Additional Family Medical History / Comment(s): SKIN CANCER General Exam - General Exam Comments Initial Comments: This is a well-developed well-nourished awake alert oriented times 3 male Limitations: no limitations General appearance: alert, in no apparent distress Head exam: Present: atraumatic, normocephalic, normal inspection Eye exam: Present: normal appearance, PERRL, EOMI. Absent: scleral icterus, conjunctival injection, periorbital swelling ENT exam: Present: normal exam, mucous membranes moist Neck exam: Present: normal inspection, full ROM, other (No stridor JVD or bruits). Absent: tenderness, meningismus, lymphadenopathy Respiratory exam: Present: normal lung sounds bilaterally. Absent: respiratory distress, wheezes, rales, rhonchi, stridor Cardiovascular Exam: Present: regular rate, normal rhythm, normal heart sounds. Absent: systolic murmur, diastolic murmur, rubs, gallop, clicks GI/Abdominal exam: Present: soft, normal bowel sounds. Absent: distended, tenderness, guarding, rebound, rigid, bruit, pulsatile mass, hernia Extremities exam: Present: normal inspection, full ROM, normal capillary refill. Absent: tenderness, pedal edema, joint swelling, calf tenderness Back exam: Present: normal inspection Neurological exam: Present: alert, oriented X3, CN II-XII intact Psychiatric exam: Present: normal affect, normal mood Skin exam: Present: warm, dry, intact, normal color. Absent: rash Course Vital Signs 09/17/20 09/17/20 09/17/20 15:46 16:30 17:00 Temperature 97.6 F Pulse Rate 53 L 53 L 53 L Respiratory 20 18 18 Rate Blood Pressure 150/91 141/87 134/89 O2 Sat by Pulse 100 96 97 Oximetry - Reevaluation(s) Reevaluation #1: 09/17/20 18:02 Evaluation patient reveals no further pain reported at this time. Chest Pain MDM - MDM I did review the imaging and report no definite acute findings. Discussed the findings the patient family members patient will be admitted for evaluation cardiology. I did discuss case with Dr. Banks Disposition Clinical Impression: Unstable angina pectoris, Chest pain Disposition: ADMITTED IP TO THIS HOSP Condition: Stable Referrals: Atilio Lott MD [Primary Care Provider] - 1-2 days
[2020-09-17 16:44] LABS: D-Dimer 0.32 mg/L FEU (<0.60); INR 0.9 (<1.2); Partial Thromboplastin Time 23.2 sec (22.0-30.0)
--- NOTE | 2020-09-17 17:14 | XR ---
EXAMINATION TYPE: XR chest 2V DATE OF EXAM: 09/17/2020 COMPARISON: 04/28/2018 HISTORY: 70-year-old male with chest pain TECHNIQUE: Frontal and lateral views of the chest are obtained. FINDINGS: There is prominence of the interstitium. Retrocardiac linear-like opacity stable since 04/28/2018 on the basis of atelectasis and/or scarring. No pneumothorax or pleural effusion. Cardiomediastinal silhouette within normal limits. Generalized osteopenia with no acute osseous abnormality. IMPRESSION: 1. Pulmonary vascular congestion, differential includes infection and inflammation or cardiogenic cau ses. 2. Linear-like opacity in the left lower lobe stable since 04/28/2018 could be on the basis of scarring and/or atelectasis.
[2020-09-17] MEDS ORDERED: NITROGLYCERIN SL TABS 0.4 MG TAB SUBLINGUAL PRN (18:09)
[2020-09-17] MEDS ORDERED: HEPARIN SODIUM 1,000 UN/ML (10ML VL) IV ONE (18:09)
[2020-09-17] MEDS ORDERED: SODIUM CHLORIDE 0.9% 1,000 ML IV SCH (18:15)
[2020-09-17] MEDS ORDERED: HEPARIN SOD,PORK IN 0.45% NACL 25,000 UNIT in 0.45% NACL 1 250ML.BAG IV SCH (18:15)
[2020-09-17] MEDS: ATORVASTATIN 40 MG TAB PO SCH (22:31)
[2020-09-17] MEDS: METOPROLOL TARTRATE 25 MG TAB PO SCH (22:31)
--- NOTE | 2020-09-18 00:37 | P.HPIM ---
History of Present Illness H&P Date: 09/17/20 Chief Complaint: Chest pain 70-year-old male with history of coronary artery disease hypertension Patient comes in complaining of left-sided chest pain he described it as mild pressure like this been going on for couple days preceded by that she gets some work around his house and cleaning his gutters before and that he didn't have any symptoms while cleaning his gutters he didn't experience any chest pain or trouble breathing but none since then he's been experiencing left-sided chest pain almost every morning when he wakes up and then randomly during the day and can happen at rest associated with some dizzy spells dizzy spells has been going on for quite a time he describes attacks about once or twice a week Otherwise denies any nausea vomiting denies any shortness of breath denies any refuse sweating denies any abdominal pain changes in his bowel habits denies any urinary or bowel changes or GI bleeding Patient most recent stress test was 2 years ago Patient concerns that he's might be having a heart attack he recalls a heart attack 12 years ago and symptoms were mild but then he was found to have coronary artery occlusions EKG showed bradycardia sinus bradycardia with T wave inversion in inferior leads however this is not new Patient denies any tobacco smoking or heavy alcohol intake he does admit to marijuana smoking Initial blood work was unremarkable Review of Systems Pertinent positives as noted in HPI. All other systems were reviewed and are negative Past Medical History Past Medical History: Coronary Artery Disease (CAD), Hyperlipidemia, Hypertension, Myocardial Infarction ([place]), Musculoskeletal Disorder, Osteoarthritis (OA) Additional Past Medical History / Comment(s): HX OF HEPATITIS, BACK PAIN, SCOLIOSIS, TORN RIGHT ROTATOR CUFF, RIB FX, SCOLIOSIS, HTN, LEFT KIDNEY CYST. Last Myocardial Infarction Date:: 2008 History of Any Multi-Drug Resistant Organisms: None Reported Past Surgical History: Ear Surgery, Heart Catheterization With Stent Additional Past Surgical History / Comment(s): PLASTIC SURGERY ON EAR A CHILD., 2 HEART CATHS WITH STENTS. 4 stents Past Anesthesia/Blood Transfusion Reactions: Motion Sickness Date of Last Stent Placement:: 2008 Past Psychological History: No Psychological Hx Reported Smoking Status: Never smoker Past Alcohol Use History: Rare Past Drug Use History: Marijuana - Past Family History Father History Unknown: Yes Family Medical History: Cancer, Coronary Artery Disease (CAD), Myocardial Infarction ([place]) Additional Family Medical History / Comment(s): SKIN CANCER Mother History Unknown: Yes Family Medical History: Cancer Additional Family Medical History / Comment(s): SKIN CANCER Medications and Allergies Home Medications Medication Instructions Recorded Confirmed Type Metoprolol Tartrate 25 mg PO BID 04/09/15 09/17/20 History Aspirin EC [Ecotrin Low Dose] 162 mg PO DAILY 01/18/18 09/17/20 History Atorvastatin [Lipitor] 40 mg PO HS 09/17/20 09/17/20 History Allergies Allergy/AdvReac Type Severity Reaction Status Date / Time No Known Allergies Allergy Verified 09/17/20 17:00 Physical Exam Vitals: Vital Signs Temp Pulse Resp BP Pulse Ox 09/17/20 18:00 67 18 128/68 99 09/17/20 17:00 53 L 18 134/89 97 09/17/20 16:30 53 L 18 141/87 96 09/17/20 15:46 97.6 F 53 L 20 150/91 100 Intake and Output 09/17/20 09/17/20 09/17/20 06:59 14:59 22:59 Other: Weight 79.379 kg Constitutional: No acute distress, conversant, pleasant Eyes: Anicteric sclerae, moist conjunctiva, Pupils equal round reactive to light ENMT: NC/AT Oropharynx clear, no erythema, or exudates Neck: Supple, FROM, no masses, or JVD No carotid bruits No thyromegaly Lungs: Clear to auscultation Clear to percussion Normal respiratory effort, no accessory muscle use Cardiovascular: Heart regular in rate and rhythm, No murmurs, gallops, or rubs No peripheral edema Abdominal: Soft Nontender, no guarding, rebound or rigidity Abdomen moving with respiration Normoactive bowel sounds No hepatomegaly, No splenomegaly No palpable mass No abdominal wall hernia noted Skin: Normal temperature, tone, texture, turgor No induration No subcutaneous nodules No rash, lesions No ulcers Extremities: No digital cyanosis No clubbing Pedal pulses intact and symmetrical Radial pulses intact and symmetrical No calf tenderness Psychiatric: Alert and oriented to person, place and time Appropriate affect fair judgement Neuro Muscles Strength 5/5 in all 4 extremities Sensation to light touch grossly present throughout Cranial nerves II-XII grossly intact No focal sensory deficits Lymphatics: no palpable cervical or supraclavicular , or inguinal lymph nodes Results CBC & Chem 7: 09/17/20 16:18 09/17/20 16:18 Labs: Abnormal Lab Results - Last 24 Hours (Table) 09/17/20 Range/Units 16:18 Chloride 110 H (98-107) mmol/L BUN 29 H (9-20) mg/dL Glucose 101 H (74-99) mg/dL Assessment and Plan Assessment: Atypical chest pain rule out ACS Heparin drip Aspirin and statin Resume metoprolol Nitro when necessary Opiates for breakthrough pain control Supplemental oxygen as needed Cardiac monitoring Trend troponins Cardiology consult Chronic conditions Osteoarthritis Hyperlipidemia Resume home meds DVT prophylaxis currently on heparin drip per ACS Patient is full code Discharge home when cleared by cardiology Anticipated length of stay less than 2 midnights
[2020-09-18] MEDS: METOPROLOL TARTRATE 25 MG TAB PO SCH (07:46)
[2020-09-18] MEDS ORDERED: CAFFEINE CITRATE 60 MG/3 ML VIAL IV PRN (08:48)
[2020-09-18] MEDS ORDERED: REGADENOSON 0.4 MG/5 ML SYRINGE IV PRN (08:48)
[2020-09-18] MEDS ORDERED: AMINOPHYLLINE 500 MG/20 ML VIAL IV PRN (08:48)
[2020-09-18] MEDS: ASPIRIN 81 MG PO SCH (08:59)
[2020-09-18] MEDS ORDERED: ASPIRIN 325 MG TAB PO SCH (09:00)
--- NOTE | 2020-09-18 10:01 | P.CRDCN ---
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 He follows in the office with Dr. Holguin. We have been asked to see in consultation for chest pain. He has been having chest pain left sided, on and off for over 2 months. Non-exertional. Non-radiating. He has been waking up with the left sided chest pain. Lasts a couple minutes. Cant describe it, he states "its just like a pain." Nothing makes it worse or better. He did not take anything for the pain. His WI in 2007, he had similar pain. He also endorses Dizziness for some time now, it comes and goes feels that he needs to sit down, sometimes it happens once a week, sometimes once a month, this is separate from his chest pain he states. He states he sometimes forgets to take his medications at home. He currently smoke marijuana only. He denies associated palpitations, shortness of breath, lower extremity edema, fatigue, weakness, lightheadedness, syncope. Denies symptoms of orthopnea or PND. Current home cardiac medications include metoprolol titrate 25 mg twice a day, atorvastatin 40 mg nightly, aspirin 162 mg daily He recently saw Dr. Holguin in the office Jul 23 2020, he had exertional chest pain at that time. Dr. Holguin ordered a Cardiolite stress test and echocardiogram. The patient states that he has these appointments he just cannot remember when these were. DIAGNOSTICS EKG reveals sinus bradycardia, HR 48, Twave inversions in leads inferiorly, prior EKGs look similar Cardiac catheterization history includes: Patient had an acute inferior WI in 06/2007, with PCI to the RCA 07/2007 revealed mildly patent RCA, nondominant circumflex, LAD with mid lesion of 80-90%- PCI to mid LAD was done. Most recent echocardiogram 04/2018 EF 66 5%, mild aortic regurgitation, mild tricuspid regurgitation Most recent stress test 04/2018 negative for stress-induced ischemia. Prior infarct along the inferior lateral wall Telemetry tracings indicate sinus bradycardia heart rate 45-50s. Also sinus mechanism HR 60s Chest xray pulmonary vascular congestion, differential includes infection and inflammation or cardiogenic cause. Linear-like opacity in the left lower lobe that is stable since 2019. Laboratory reviewed, CBC unremarkable, d-dimer negative, sodium 142, potassium 4.4, BUN 29, serum creatinine 0.93, troponin negative 3, BNP 239, magnesium 2.1, lipase within normal limits. REVIEW OF SYSTEMS At the time of my exam: CONSTITUTIONAL: Denies fever or chills. CARDIOVASCULAR: +chest pain Denies shortness of breath, orthopnea, PND or palpitations. RESPIRATORY: Denies cough. GASTROINTESTINAL: Denies abdominal pain, diarrhea, constipation, nausea or v omiting. MUSCULOSKELETAL: Denies myalgias. NEUROLOGIC: +dizziness Denies numbness, tingling, headacbe or weakness. ENDOCRINE: Denies fatigue, weight change, polydipsia or polyurina. GENITOURINARY: Denies burning, hematuria or urgency with micturation. HEMATOLOGIC: Denies history of anemia or bleeding. PHYSICAL EXAMINATION Blood pressure 122/78 heart rate 54 afebrile and maintaining oxygen saturation 97% on room air CONSTITUTIONAL: No apparent distress. HEENT: Head is normocephalic. Pupils are equal, round. Sclerae anicteric. Mucous membranes of the mouth are moist. No JVD. No carotid bruit. CHEST EXAMINATION: Lungs are clear to auscultation. No chest wall tenderness is noted on palpation or with deep breathing. HEART EXAMINATION: Regular rate and rhythm. S1, S2 heard. No murmurs, gallops or rub. ABDOMEN: Soft, nontender. Positive bowel sounds. EXTREMITIES: 2+ peripheral pulses, no lower extremity edema and no calf tenderness. SKIN: intact NEUROLOGIC EXAMINATION: Patient is awake, alert and oriented x3. ASSESSMENT Chest pain, atypical, acute coronary syndrome has been ruled out Dizziness Coronary artery disease status post multivessel PCI most recent is PCI mid LAD in 07/2007 Hypertension Hyperlipidemia Marijuana use PLAN We will discontinue patient' metoprolol tartrate due to bradycardia and symptomatic with dizziness Recommend Neurology consult for dizziness An acute coronary event has been ruled out with no EKG evidence of ischemia and negative cardiac enzymes. Obtain 2D echocardiogram and doppler study to assess cardiac structure and function. Perform Lexiscan stress test to assess for stress induced cardiac ischemia. If stress test is normal and no acute findings on echocardiogram, ok to discharge patient from cardiology perspective and follow up with Dr. Holguin as an outpatient. Smoking cessation discussed and highly recommended. Thank you kindly for this consultation. Nurse Practitioner note has been reviewed, I agree with a documented findings and plan of care. Patient was seen and examined. Past Medical History Past Medical History: Coronary Artery Disease (CAD), Hyperlipidemia, Hypertension, Myocardial Infarction ([place]), Musculoskeletal Disorder, Osteoarthritis (OA) Additional Past Medical History / Comment(s): HX OF HEPATITIS, BACK PAIN, SCOLIOSIS, TORN RIGHT ROTATOR CUFF, RIB FX, SCOLIOSIS, HTN, LEFT KIDNEY CYST. Last Myocardial Infarction Date:: 2008 History of Any Multi-Drug Resistant Organisms: None Reported Past Surgical History: Ear Surgery, Heart Catheterization With Stent Additional Past Surgical History / Comment(s): PLASTIC SURGERY ON EAR A CHILD., 2 HEART CATHS WITH STENTS. 4 stents Past Anesthesia/Blood Transfusion Reactions: Motion Sickness Date of Last Stent Placement:: 2008 Past Psychological History: No Psychological Hx Reported Smoking Status: Never smoker Past Alcohol Use History: Rare Past Drug Use History: Marijuana - Past Family History Father History Unknown: Yes Family Medical History: Cancer, Coronary Artery Disease (CAD), Myocardial Infarction ([place]) Additional Family Medical History / Comment(s): SKIN CANCER Mother History Unknown: Yes Family Medical History: Cancer Additional Family Medical History / Comment(s): SKIN CANCER Medications and Allergies Home Medications Medication Instructions Recorded Confirmed Type Aspirin EC [Ecotrin Low Dose] 162 mg PO DAILY 01/18/18 09/17/20 History Atorvastatin [Lipitor] 40 mg PO HS 09/17/20 09/17/20 History Allergies Allergy/AdvReac Type Severity Reaction Status Date / Time No Known Allergies Allergy Verified 09/17/20 17:00 Physical Exam Vitals: Vital Signs Temp Pulse Pulse Resp BP BP Pulse Ox 09/18/20 02:00 18 09/18/20 01:27 97.6 F 63 14 118/70 96 09/17/20 23:05 97.4 F L 48 L 16 134/83 98 09/17/20 21:00 81 16 155/87 98 09/17/20 18:00 67 18 128/68 99 09/17/20 17:00 53 L 18 134/89 97 09/17/20 16:30 53 L 18 141/87 96 09/17/20 15:46 97.6 F 53 L 20 150/91 100 Intake and Output 09/17/20 09/17/20 09/18/20 14:59 22:59 06:59 Other: Voiding Method Toilet # Voids 2 Weight 79.379 kg 79.379 kg Results 09/17/20 16:18 09/17/20 16:18 Cardiac Enzymes 09/17/20 09/17/20 09/17/20 Range/Units 16:18 16:18 20:13 AST 27 (17-59) U/L Troponin I <0.012 <0.012 (0.000-0.034) ng/mL 09/17/20 Range/Units 22:32 AST (17-59) U/L Troponin I <0.012 (0.000-0.034) ng/mL Coagulation 09/17/20 09/18/20 Range/Units 16:18 00:50 PT 10.0 (9.0-12.0) sec APTT 23.2 65.3 H (22.0-30.0) sec CBC 09/17/20 Range/Units 16:18 WBC 9.5 (3.8-10.6) k/uL RBC 5.22 (4.30-5.90) m/uL Hgb 15.3 (13.0-17.5) gm/dL Hct 46.1 (39.0-53.0) % Plt Count 176 (150-450) k/uL Comprehensive Metabolic Panel 09/17/20 Range/Units 16:18 Sodium 142 (137-145) mmol/L Potassium 4.4 (3.5-5.1) mmol/L Chloride 110 H (98-107) mmol/L Carbon Dioxide 26 (22-30) mmol/L BUN 29 H (9-20) mg/dL Creatinine 0.93 (0.66-1.25) mg/dL Glucose 101 H (74-99) mg/dL Calcium 9.2 (8.4-10.2) mg/dL AST 27 (17-59) U/L ALT 20 (4-49) U/L Alkaline Phosphatase 76 (38-126) U/L Total Protein 6.7 (6.3-8.2) g/dL Albumin 4.2 (3.5-5.0) g/dL Current Medications Generic Name Dose Route Start Last Admin Trade Name Freq PRN Reason Stop Dose Admin Aspirin 325 mg 09/18/20 09:00 Aspirin 325 Mg Tab PO DAILY RONALD Atorvastatin Calcium 40 mg 09/17/20 21:00 09/17/20 22:31 Atorvastatin 40 Mg Tab PO 40 mg HS RONALD Administration Sodium Chloride 1,000 mls @ 20 mls/hr 09/17/20 18:15 09/17/20 18:25 Saline 0.9% IV 20 mls/hr .Q24H RONALD Administration Heparin Sodium/Sodium Chloride 250 mls @ 9.525 mls/hr 09/17/20 18:15 09/17/20 18:42 25,000 unit/ Sodium Chloride IV 12 units/kg/hr .Q24H RONALD 9.525 mls/hr Administration Protocol 12 UNITS/KG/HR Metoprolol Tartrate 25 mg 09/17/20 21:00 09/17/20 22:31 Metoprolol Tartrate 25 Mg Tab PO 25 mg BID RONALD Administration Nitroglycerin 0.4 mg 09/17/20 18:09 Nitroglycerin Sl Tabs 0.4 Mg Tab SUBLINGUAL Q5M PRN Chest Pain Intake and Output 09/17/20 09/17/20 09/18/20 14:59 22:59 06:59 Other: Voiding Method Toilet # Voids 2 Weight 79.379 kg 79.379 kg Patient Weight 09/18/20 06:59 Weight 79.379 kg 09/17/20 16:18 09/17/20 16:18
[2020-09-18 10:11] LABS: Basophils # (A) 0.03 X 10*3/uL (0.00-0.10); Basophils % (A) 0.3 %; Eosinophils # (A) 0.18 X 10*3/uL (0.04-0.35); HCT 45.4 % (39.6-50.0); HGB 14.4 g/dL (13.0-17.0); Lymphocytes # (A) 2.01 X 10*3/uL (0.90-5.00); Lymphocytes % (A) 21.8 %; MCH 28.7 pg (27.0-32.0); MCHC 31.7 g/dL (32.0-37.0); MCV 90.6 fL (80.0-97.0); Mean Platelet Volume 11.7 fL (9.5-12.2); Monocytes # (A) 0.81 X 10*3/uL (0.20-1.00); Monocytes % (A) 8.8 %; Neutrophils # (A) 6.16 X 10*3/uL (1.80-7.70); Neutrophils % (A) 66.9 %; Platelet Count 178 X 10*3/uL (140-440); RBC 5.01 X 10*6/uL (4.40-5.60); RDW 12.5 % (11.5-14.5); WBC 9.21 X 10*3/uL (4.50-10.00)
--- NOTE | 2020-09-18 10:54 | ECHOF ---
Referral Reason:Chest pain MEASUREMENTS -------- HEIGHT: 172.7 cm WEIGHT: 79.4 kg BP: 118/70 RVIDd: 3.4 cm (< 3.3) IVSd: 1.4 cm (0.6 - 1.1) LVIDd: 4.5 cm (3.9 - 5.3) LVPWd: 1.4 cm (0.6 - 1.1) IVSs: 1.7 cm LVIDs: 2.5 cm LVPWs: 1.9 cm LAESV Index (A-L): 17.53 ml/m Ao Diam: 3.5 cm (2.0 - 3.7) AV Cusp: 2.3 cm (1.5 - 2.6) MV EXCURSION: 20.468 mm (> 18.000) MV EF SLOPE: 143 mm/s (70 - 150) EPSS: 0.4 cm MV E Ahmet: 0.58 m/s MV DecT: 305 ms MV A Ahmet: 0.52 m/s MV E/A Ratio: 1.10 AR PHT: 675 ms RAP: 5.00 mmHg RVSP: 22.88 mmHg FINDINGS -------- Resting bradycardia (HR<60bpm). This was a technically adequate study. The left ventricular size is normal. There is moderate concentric left ventricular hypertrophy. O verall left ventricular systolic function is low-normal with, an EF between 50 - 55 %. The diastoli c filling pattern is normal for the age of the patient 8.34. The right ventricle is mildly enlarged. Normal LA size by volume 22+/-6 ml/m2. The right atrial size is normal. Interatrial and interventricular septum intact. The aortic valve is trileaflet and appears structurally normal. There is mild aortic regurgitation. There is no evidence of aortic stenosis. Mild mitral regurgitation is present. Mild tricuspid regurgitation present. There is no evidence of pulmonary hypertension. The right v entricular systolic pressure, as measured by Doppler, is 22.88mmHg. There is no pulmonic regurgitation present. The aortic root size is normal. The inferior vena cava is mildly dilated. There is no pericardial effusion. CONCLUSIONS -------- 1. The left ventricular size is normal. 2. There is moderate concentric left ventricular hypertrophy. 3. Overall left ventricular systolic function is low-normal with, an EF between 50 - 55 %. 4. The right ventricle is mildly enlarged. 5. There is mild aortic regurgitation. 6. Mild mitral regurgitation is present. 7. Mild tricuspid regurgitation present. 8. The inferior vena cava is mildly dilated. APPLIANCE REPAIR TECHNICIAN: Jennifer Collier RDCS
[2020-09-18] MEDS ORDERED: HYDROcodone/APAP 5-325MG 1 EACH TAB PO PRN (11:58)
[2020-09-18] MEDS ORDERED: ACETAMINOPHEN TAB 325 MG TAB PO PRN (11:58)
[2020-09-18 13:31] LABS: African American GFR (CKD) 89.2 (60.0-200.0); Albumin 3.9 g/dL (3.80-4.90); Albumin/Globulin Ratio 2.05 (1.60-3.17); Anion Gap 11.1 mmol/L (4.00-12.00); Calcium 8.6 mg/dL (8.7-10.3); Carbon Dioxide 21.9 mmol/L (21.6-31.8); Chol/HDL Ratio 3.21; Globulin 1.9 g/dL (1.6-3.3); Total Bilirubin 0.5 mg/dL (0.2-1.2); Total Protein 5.8 g/dL (6.2-8.2)
--- NOTE | 2020-09-18 17:24 | P.STRESS ---
- Stress Test Note Stress Test Results/Findings: Exam Performed: NM stress lexiscan cardiolite Exam Date: 09/18/20 Reason for Exam: Chest Pain Height: 5 ft 8 in Weight: 79.38 kg Protocol: Lexiscan Stage: na Duration of Exercise: na Resting Heart Rate: 48 Resting Blood Pressure: 142/83 Maximum Achieved Heart Rate: 89 Maximum Achieved Blood Pressure: 142/83 85% PMHR: 129 100% PMHR: 152 METS: na Technologist Comment: Stress Test Results/Findings: This is a 70-year-old gentleman with history of hypertension and ischemic heart disease being evaluated for symptoms of chest pain. Stress data: Baseline EKG showed sinus rhythm with normal HI and chronic aspiration. A standard dose of Lexiscan was infused. EKGs did not reveal any significant changes from baseline. Final impression: #1. Negative Lexiscan stress test #2. Report on the nuclear images to be provided by the radiologist.
--- NOTE | 2020-09-18 20:28 | P.DS ---
Providers Date of admission: 09/17/20 18:09 Expected date of discharge: 09/18/20 Attending physician: Delia Vela DO Consults: 09/17/20 18:09 Consult Physician Urgent Consulting Provider: Galina Holguin Consult Reason/Comments: Chest pain Do you want consulting provider notified?: Yes Primary care physician: Atilio Carreon Kaylie [facility] Course: Patient is a 70-year-old male with a history of coronary artery disease status post stenting, hypertension, and dyslipidemia who presented to the hospital complaints of chest pain. In the ER he underwent extensive evaluation. EKG showed some bradycardia with T-wave inversion. Initial troponin was negative. Is admitted for chest pain observation. He remained bradycardic. Cardiology was consulted and they decreased his beta leighton and recommended echocardiogram which showed an ejection fraction of 50-55% without any wall motion abnormalities. Lexiscan stress test is pending. Patient seen and examined at bedside. He denies any chest pain, dizziness, headache at this time. He reports that for the last month has had some intermittent dizziness. This happens once weekly for either some minutes. He states it does not matter whether he is lying down, exercising, eating, or change in positions. He denies any postnasal drip. He denies any ear difficulties. He denies any changes in vision. General: non toxic, no distress, appears at stated age Derm: warm, dry Head: atraumatic, normocephalic, symmetric Eyes: EOMI, no lid lag, anicteric sclera Mouth: no lip lesion, mucus membranes moist Cardiovascular: S1S2 reg, no murmur, positive posterior tibial pulse bilateral, Lungs: CTA bilateral, no rhonchi, no rales , no accessory muscle use Abdominal: soft, nontender to palpation, no guarding, no appreciable organomegaly Ext: no gross muscle atrophy, no edema, no contractures Neuro: CN II-XI grossly intact, no focal neuro deficits Psych: Alert, oriented, appropriate affect Atypical chest pain - Acute coronary syndrome has been ruled out -Cardiology recommendations appreciated, outpatient follow-up if stress testing is negative which is pending at this point in time -Echocardiogram within normal limits Dizziness suspect secondary to bradycardia -Decreased metoprolol dose noted -Patient will follow-up with primary care physician for further recommendations if dizziness does not improve with decreasing metoprolol dosing. Chronic conditions: Dyslipidemia, osteoarthritis Anticipate discharge home once Lexiscan stress test is available. Patient Condition at Discharge: Stable Plan - Discharge Summary Discharge Rx Participant: No New Discharge Prescriptions: Discontinued Metoprolol Tartrate 25 mg PO BID No Action Aspirin EC [Ecotrin Low Dose] 162 mg PO DAILY Atorvastatin [Lipitor] 40 mg PO HS Discharge Medication List Aspirin EC [Ecotrin Low Dose] 162 mg PO DAILY 01/18/18 [History] Atorvastatin [Lipitor] 40 mg PO HS 09/17/20 [History] Follow up Appointment(s)/Referral(s): Atilio Lott MD [Primary Care Provider] - 1-2 days Galina Holguin MD [Family Provider] - 2 Weeks
[2020-09-18] MEDS: ATORVASTATIN 40 MG TAB PO SCH (20:50)
[2020-09-19] MEDS: ASPIRIN 81 MG PO SCH (08:17)
--- NOTE | 2020-09-19 09:25 | P.PN ---
Subjective Progress Note Date: 09/19/20 This 62-year-old gentleman who follows with Dr. Musa in the office. Has a past medical history significant for acute NV in June 2007 status post PCI of RCA, CAD status post multivessel PCI most recent PCI to the mid LAD July 2007, hypertension, hyperlipidemia and marijuana use. Presented to the emergency department with complaints of chest discomfort, left-sided recurring over the last several months. He feels the pain is similar to when he had his NV in 2007 but also similar to pain she had a few years back with no acute coronary event. Is also complaining of some dizziness and EKG showed sinus bradycardia. Beta leighton has been discontinued. He is currently on atorvastatin and aspirin. He underwent Lexiscan MPI yesterday and these results are pending. Echocardiogram with Doppler study showed normal LV systolic function with ejection fraction of 50-55% with mild aortic, mitral and tricuspid regurgitation. Objective - Vital Signs Vital signs: Vital Signs Temp 98.1 F 09/19/20 07:00 Pulse 65 09/19/20 07:00 Resp 17 09/19/20 07:00 BP 132/79 09/19/20 07:00 Pulse Ox 95 09/19/20 07:00 Intake & Output 09/18/20 09/19/20 09/19/20 18:59 06:59 18:59 Intake Total 123.666 180 Balance 123.666 180 Weight 79.38 kg Intake: Intake, IV Titration 123.666 Amount Heparin Sod,Pork in 0.45% 123.666 NaCl 25,000 unit In 0.45 % NaCl 1 250ml.bag @ 12 UNITS/KG/HR 9.525 mls/hr IV .Q24H [facility] Rx#: [id number] Oral 180 Other: Voiding Method Toilet # Voids 2 1 - Exam PHYSICAL EXAMINATION: HEENT: Head is atraumatic, normocephalic. Pupils equal, round. Neck is supple. There is no elevated jugular venous pressure. HEART EXAMINATION: Heart sounds regular, S1 and S2 normal. No murmur or gallop heard. CHEST EXAMINATION: Lungs are clear to auscultation and precussion. No chest wall tenderness is noted on palpation or with deep breathing. ABDOMEN: Soft, nontender. Bowel sounds are heard. No organomegaly noted. EXTREMITIES: 2+ peripheral pulses with no evidence of peripheral edema and no calf tenderness noted. NEUROLOGIC patient is awake, alert and oriented x3. . - Labs CBC & Chem 7: 09/18/20 05:45 09/18/20 05:45 Labs: Abnormal Lab Results - Last 24 Hours (Table) 09/18/20 09/18/20 Range/Units 05:45 05:45 MCHC 31.7 L (32.0-37.0) g/dL Chloride 110 H (96-109) mmol/L BUN/Creatinine Ratio 24.00 H (12.00-20.00) Ratio Calcium 8.6 L (8.7-10.3) mg/dL Total Protein 5.8 L (6.2-8.2) g/dL Assessment and Plan Assessment: #1 chest pain, atypical, ACS has been ruled out, awaiting Lexiscan MPI results #2 dizziness with evidence of bradycardia on EKG, improved #3 CAD status post multi-vessel PCI most recent PCI of the mid LAD in July 2007 #4 hypertension #5 hyperlipidemia #6 marijuana use Plan: From cardiology's perspective and acute coronary event has been ruled out. If Lexiscan MPI shows no evidence of stress-induced ischemia patient may be discharged home and follow-up with Dr. DARNELL Holguin in the office. Awaiting read from radiology. STONE RUBBER note has been reviewed, I agree with a documented findings and plan of care. Patient was seen and examined.
--- NOTE | 2020-09-19 10:15 | NM ---
EXAMINATION TYPE: NM stress lexiscan cardiolite DATE OF EXAM: 09/18/2020 COMPARISON: 04/30/2018 HISTORY: 70-year-old male with chest pain TECHNIQUE: After the intravenous administration of 9.9 mCi Tc 99m Sestamibi - Cardiolite resting SPE CT images acquired 45 minutes post injection. The patient received 0.4mg Lexiscan, 24.5 mCi Tc 99m Sestamibi - Stress images obtained [address] injection FINDINGS: Review of stress and rest SPECT images demonstrates subtle decreased lateral, inferolateral wall perf usion on stress compared to the rest images. This is corroborated on the polar maps. No other perfusi on abnormality is seen. Gated analysis shows some associated hypokinesis with an estimated left ventr icular ejection fraction of 53%, borderline diminished. TID is normal at 0.90. IMPRESSION: 1. Subtle reversibility along the lateral, inferolateral wall corroborated on the polar map suggestin g inducible ischemia. 2. Estimated LVEF is borderline diminished at 53%.
[2020-09-19] MEDS ORDERED: NITROGLYCERIN SL TABS 0.4 MG TAB SUBLINGUAL PRN (11:59)
[2020-09-19] MEDS ORDERED: ALPRAZolam 0.25 MG TAB PO PRN (11:59)
[2020-09-19] MEDS ORDERED: ALPRAZolam 0.5 MG TAB PO PRN (11:59)
--- NOTE | 2020-09-19 18:32 | P.PN ---
Subjective Progress Note Date: 09/19/20 (delayed charting seen at 11 am) Principal diagnosis: chest pain Patient is a 70-year-old male with a history of coronary artery disease status post stenting, hypertension, and dyslipidemia who presented to the hospital complaints of chest pain. In the ER he underwent extensive evaluation. EKG showed some bradycardia with T-wave inversion. Initial troponin was negative. Is admitted for chest pain observation. He remained bradycardic. Cardiology was consulted and they decreased his beta leighton and recommended echocardiogram which showed an ejection fraction of 50-55% without any wall motion abnormalities. Lexiscan stress test showed reversible ischemia Patient seen and examined at bedside. No chest pain currently, not dizzy, no shortness of breath General: non toxic, no distress, appears at stated age Derm: warm, dry Head: atraumatic, normocephalic, symmetric Eyes: EOMI, no lid lag, anicteric sclera Mouth: no lip lesion, mucus membranes moist Cardiovascular: S1S2 reg, no murmur, positive posterior tibial pulse bilateral, Lungs: CTA bilateral, no rhonchi, no rales , no accessory muscle use Abdominal: soft, nontender to palpation, no guarding, no appreciable organomegaly Ext: no gross muscle atrophy, no edema, no contractures Neuro: CN II-XI grossly intact, no focal neuro deficits Psych: Alert, oriented, appropriate affect Atypical chest pain - positive stress test, plan is for cath in AM - Acute coronary syndrome has been ruled out -Echocardiogram within normal limits Dizziness suspect secondary to bradycardia off metoprolol -Patient will follow-up with primary care physician for further recommendations if dizziness does not improve with decreasing metoprolol dosing. Chronic conditions: Dyslipidemia, osteoarthritis Home after cath completed. Objective - Vital Signs Vital signs: Vital Signs Temp 97.5 F L 09/19/20 14:54 Pulse 66 09/19/20 14:54 Resp 17 09/19/20 14:54 BP 142/78 09/19/20 14:54 Pulse Ox 97 09/19/20 15:41 Intake & Output 09/18/20 09/19/20 09/19/20 18:59 06:59 18:59 Intake Total 123.666 180 Balance 123.666 180 Weight 79.38 kg Intake: Intake, IV Titration 123.666 0 Amount Heparin Sod,Pork in 0.45% 123.666 NaCl 25,000 unit In 0.45 % NaCl 1 250ml.bag @ 12 UNITS/KG/HR 9.525 mls/hr IV .[facility] Rx#: [id number] Sodium Chloride 0.9% 1, 0 000 ml In Empty Bag 1 bag @ 1 ML/KG/HR 79.38 mls/ hr IV .[id number] ONE Rx#: [id number] Oral 180 Other: Voiding Method Toilet # Voids 2 1 - Labs CBC & Chem 7: 09/18/20 05:45 09/18/20 05:45
[2020-09-19] MEDS: ATORVASTATIN 40 MG TAB PO SCH (20:52)
[2020-09-19] MEDS ORDERED: SODIUM CHLORIDE 0.9% 1,000 ML in EMPTY BAG 1 BAG IV ONE (21:00)
[2020-09-20] MEDS ORDERED: ATORVASTATIN 80 MG TAB PO ONE (06:00)
[2020-09-20] MEDS ORDERED: ASPIRIN 325 MG TAB PO ONE (06:00)
[2020-09-20] MEDS ORDERED: HEPARIN SODIUM,PORCINE 10,000 UNIT in SODIUM CHLORIDE 0.9% 1,000 ML IRRIGATION PRN (07:00)
[2020-09-20] MEDS ORDERED: HEPARIN SODIUM,PORCINE 2,500 UNIT in SODIUM CHLORIDE 0.9% 250 ML IRRIGATION PRN (07:00)
[2020-09-20] MEDS ORDERED: fentaNYL (PF) 50 MCG/ML 2 ML AMP ONE (10:24)
[2020-09-20] MEDS ORDERED: fentaNYL (PF) 50 MCG/ML 2 ML AMP IV ONE ×2 (10:28→10:34)
[2020-09-20] MEDS ORDERED: IV FLUID CONTINUATION 1,000 ML IV ONE (10:28)
[2020-09-20] MEDS ORDERED: VERAPAMIL SYRINGE (5 MG/10 ML) INTRAARTER ONE (10:38)
[2020-09-20] MEDS ORDERED: LIDOCAINE 1% INJ 10MG/ML (20 ML MDV) SQ ONE (10:38)
[2020-09-20] MEDS ORDERED: MIDAZOLAM 2 MG/2 ML VIAL IV ONE (10:47)
[2020-09-20] MEDS: HEPARIN SODIUM 1,000 UN/ML (10ML VL) IV ONE ×2 (10:48→11:04)
[2020-09-20] MEDS ORDERED: HEPARIN SODIUM 1,000 UN/ML (10ML VL) ONE (10:50)
[2020-09-20] MEDS ORDERED: CLOPIDOGREL 75 MG TAB ONE (11:03)
[2020-09-20] MEDS ORDERED: CLOPIDOGREL 75 MG TAB PO ONE (11:04)
[2020-09-20] MEDS ORDERED: NITROGLYCERIN 1000MCG/10ML SYRINGE INTRACORON ONE ×2 (11:06→11:37)
[2020-09-20] MEDS ORDERED: IOPAMIDOL-370 125ML BTL INJ ONE (11:10)
[2020-09-20] MEDS ORDERED: IOPAMIDOL-370 100ML BTL INJ ONE (11:39)
[2020-09-20] MEDS ORDERED: NITROGLYCERIN SL TABS 0.4 MG TAB SUBLINGUAL PRN (11:57)
[2020-09-20] MEDS ORDERED: RX INFO: IV CONTRAST WAS GIVEN 1 EACH MISC MISCELLANE PRN (11:57)
[2020-09-20] MEDS ORDERED: ATROPINE SULFATE 0.1 MG/ML 10ML SYRINGE IV PRN (11:57)
[2020-09-20] MEDS ORDERED: MAG HYDROX/AL HYDROX/SIMETH 30 ML CUP PO PRN (11:57)
[2020-09-20] MEDS ORDERED: ZOLPIDEM 5 MG TAB PO PRN (11:57)
[2020-09-20] MEDS ORDERED: SODIUM CHLORIDE 0.9% 1,000 ML IV SCH (12:00)
--- NOTE | 2020-09-20 14:00 | P.PN ---
Subjective Progress Note Date: 09/20/20 Principal diagnosis: chest pain Patient is a 70-year-old male with a history of coronary artery disease status post stenting, hypertension, and dyslipidemia who presented to the hospital complaints of chest pain. In the ER he underwent extensive evaluation. EKG showed some bradycardia with T-wave inversion. Initial troponin was negative. Is admitted for chest pain observation. He remained bradycardic. Cardiology was consulted and they decreased his beta leighton and recommended echocardiogram which showed an ejection fraction of 50-55% without any wall motion abnormal ities. Lexiscan stress test showed reversible ischemia. He went for cardiac cath and had a stent placed to the LAD Patient seen and examined at bedside. Slowed thinking with sedation from cath, no nuasea, no vomiting. no chest pain. General: non toxic, no distress, appears at stated age Derm: warm, dry Head: atraumatic, normocephalic, symmetric Eyes: EOMI, no lid lag, anicteric sclera Mouth: no lip lesion, mucus membranes moist Cardiovascular: S1S2 reg, no murmur, positive posterior tibial pulse bilateral, Lungs: CTA bilateral, no rhonchi, no rales , no accessory muscle use Abdominal: soft, nontender to palpation, no guarding, no appreciable organomegaly Ext: no gross muscle atrophy, no edema, no contractures Neuro: CN II-XI grossly intact, no focal neuro deficits Psych: Alert, oriented, flat affect Daughter at bedside and all questions answered. Unstable angina, s/p stent to the LAD - ASA, plavix, and lipitor -Echocardiogram within normal limits Dizziness suspect secondary to bradycardia off metoprolol -Patient will follow-up with primary care physician for further recommendations if dizziness does not improve stopping metoprolol and with stent placement. Chronic conditions: Dyslipidemia, osteoarthritis Home once cleared by cardiology. Objective - Vital Signs Vital signs: Vital Signs Temp 97.5 F L 09/20/20 11:59 Pulse 62 09/20/20 12:14 Resp 18 09/20/20 11:59 BP 126/72 09/20/20 12:14 Pulse Ox 96 09/20/20 12:14 Intake & Output 09/19/20 09/20/20 09/20/20 18:59 06:59 18:59 Intake Total 180 240 318 Balance 180 240 318 Intake: IV 200 Intake, IV Titration 0 Amount Sodium Chloride 0.9% 1, 0 000 ml In Empty Bag 1 bag @ 1 ML/KG/HR 79.38 mls/ hr IV .[id number] ONE Rx#: [id number] Oral 180 240 118 Other: Voiding Method Toilet Toilet # Voids 1 1 - Labs CBC & Chem 7: 09/18/20 05:45 09/18/20 05:45
--- NOTE | 2020-09-20 19:20 | CC ---
CARDIAC CATHETERIZATION REPORT PROCEDURE PERFORMED: Cardiac catheterization. INDICATIONS: Mr. Araya is a 70-year-old male with known history of coronary artery disease who presented with symptoms of chest discomfort. He had no evidence of acute ST-segment changes or enzymatic changes. He had an abnormal myocardial perfusion imaging. In view of that, recommendation regarding cardiac catheterization. The procedure as well as the risks and complications were discussed with the patient who is in full understanding and agreement. PROCEDURE: Patient was brought to manufacturing laborer in a fasting semi-sedated state after receiving fentanyl, Benadryl and achieving moderate conscious sedated state. Using Xylocaine anesthesia and Seldinger technique a 6-Nauruan sheath was introduced in the right radial artery. Selective right and left coronary angiography performed using 5-Nauruan 3.5 bend right and left Adenike catheter. Multiple views of the right coronary artery including hemiaxial views were obtained. Following that, a 5-Nauruan tight pigtail catheter was introduced in the left ventricle and pressures were calculated. Following that, catheter removed. Hemostasis was obtained. FINDINGS: 1. FLUOROSCOPY: There was calcification involving the left anterior descending artery. 2. LEFT MAIN: This is a large-sized vessel, bifurcating into left circumflex, left anterior descending artery. Left main coronary artery has no evidence of high-grade stenosis. 3. LEFT ANTERIOR DESCENDING ARTERY: This is a large-sized vessel reaching toward the apex with a wraparound apex segment giving rise to 2 diagonal branches. After the first diagonal branch there is a stented segment that has 20% to 30% in-stent restenosis. Proximal to the diagonal branch, there is an eccentric lesion of 60 to 70%. The rest of the vessel has no high-grade stenosis. 4. LEFT CIRCUMFLEX: This is a nondominant vessel giving rise to 2 obtuse marginal branch. The left circumflex after the takeoff of the first obtuse marginal branch and extending into the second obtuse marginal branch has an eccentric lesion of 50 to 60%. The rest of the vessel has no high-grade stenosis. 5. RIGHT CORONARY ARTERY: This is a nondominant vessel bifurcating distally into PDA and posterolateral segment branches. The right coronary artery in stented segment has mild intimal disease of 20% to 30% without any evidence of high-grade stenosis. LEFT VENTRICULOGRAM: Left ventriculogram was not performed. HEMODYNAMICS: There was no gradient across the aortic valve. The left ventricle end-diastolic pressure was 10-15 mmHg. CONCLUSION: 1. Patent stent in the right coronary artery with mild in-stent restenosis. 2. Patent stent to the left anterior descending with mild in-stent restenosis with evidence of borderline significant lesion in the proximal left anterior descending and the mid left circumflex extending into the second obtuse marginal branch. RECOMMENDATION: In view of finding anatomy, I recommend proceeding with physiological measurement of the lesions of the LAD and left circumflex and depending on that, further recommendation will be made. I have discussed those findings with the patient who is in full understanding and agreement. MMODL / IJN: [id number] /
--- NOTE | 2020-09-20 19:24 | PTCA ---
PERCUTANEOUSTRANS CORORONARY ANGIOGRAPHY Mr. Araya is a 70-year-old male with a known history of coronary artery disease who presented with symptoms of chest discomfort, had an abnormal myocardial perfusion imaging, underwent cardiac catheterization and was found to have borderline significant lesion in the proximal LAD and the mid left circumflex. In view of that, recommendation made regarding Doppler flow measurement and depending on the results, further recommendations will be made. Those findings and recommendations were discussed with the patient who was in full understanding and agreement. PROCEDURE: A 6-Filipino FL 3.5 guiding catheter introduced in the system. After cannulating the left main, Doppler flow wire volcano was introduced, positioned distal LAD, IFR was measured at 0.84. At that point, a 2.5 x 12 mm NC Trek balloon was advanced and inflation maximum of 10 atmospheres were done. Attempt to advance a 3.0 x 23 mm Xience Estephania stent were unsuccessful. At that point, the stent was removed and another 0.014 balanced medium weight J-wire was advanced next to the Doppler flow wire and positioned distally. Subsequently the stent was advanced, deployed and post dilated at 16 atmospheres. After the last inflation, after appropriate wait, the balloon and the guidewire were withdrawn back in the guiding catheter. Images were obtained, repeated. Those images reveal stable successful stenting. At that point, the Doppler flow wire was introduced in left circumflex, an IFR was measured at 0.97. At that time, the wire was removed and images were obtained. Following that, catheter and sheath were removed. Hemostasis was obtained with deployment of TR band. There was no immediate complication. Patient was returned to his room in stable condition. Of note, the patient received intra-arterial verapamil and 6000 units of intravenous heparin. His ACT was followed. He also received an oral loading dose of clopidogrel. He had soreness during the procedure that did not change and started prior to the intervention and he had EKG changes that resolved. RESULTS: 1. Successful stenting of a hemodynamically significant proximal LAD lesion with reduction of stenosis from 60-70 percent to 0%. 2. Non-hemodynamic significant lesion in the left circumflex by Doppler flow wire. RECOMMENDATION: Patient will be continued on aspirin, Plavix and statin. The importance of dual antiplatelet treatment was discussed with the patient and his family who are in full understanding and agreement. Duration of procedure is 64 minutes. MMODL / IJN: [id number] /
[2020-09-20] MEDS: ATORVASTATIN 40 MG TAB PO SCH (21:33)
[2020-09-21 05:56] LABS: African American GFR (CKD) 85 (>60 ml/min/1.73 sqM); Anion Gap 3 mmol/L; Blood Urea Nitrogen 22 mg/dL (9-20); Calcium 9.4 mg/dL (8.4-10.2); Carbon Dioxide 30 mmol/L (22-30); Chloride 107 mmol/L (98-107); Glucose 101 mg/dL (74-99); Non-African American GFR(CKD) 74 (>60 ml/min/1.73 sqM); Potassium 4.5 mmol/L (3.5-5.1); Sodium 140 mmol/L (137-145)
[2020-09-21 07:01] VITALS: BP 130/80; PULSE 57; RESP 18; TEMP 98
[2020-09-21] MEDS ORDERED: CLOPIDOGREL 75 MG TAB PO SCH (09:00)
[2020-09-21] MEDS ORDERED: ASPIRIN 81 MG PO SCH (09:00)
--- NOTE | 2020-09-21 10:22 | P.DS ---
Providers Date of admission: 09/21/20 08:49 Expected date of discharge: 09/21/20 Attending physician: Delia Vela DO Consults: 09/17/20 18:09 Consult Physician Urgent Consulting Provider: Galina Holguin Consult Reason/Comments: Chest pain Do you want consulting provider notified?: Yes 09/20/20 11:58 Consult Physician Routine Consulting Provider: [facility] Consult Reason/Comments: Post Interventional patient Do you want consulting provider notified?: Already Contacted Primary care physician: Atilio Carreon [facility] Course: The patient is a 70-year-old male with a PMH of coronary artery disease and multiple stents, hypertension, and hyperlipidemia who presented to the emergency room with chest pressure. He was noted to have EKG abnormalities. He underwent a cardiac stress test with subsequent cardiac catheterization with a stent placed to the LAD on 09/20. The patient was seen at the bedside on 09/21. He reported feeling well and denied active complaints. Reported no further episodes of chest discomfort. Denied shortness of breath, nausea, vomiting, palpitations. Also denied dizziness. The patient's metoprolol was discontinued due to dizziness and bradycardia. The patient reported that he is eager to go home. Advised the patient that if this chest discomfort recurs or he develops new symptoms that he should immediately come to the emergency room. The patient was cleared for discharge by cardiology this morning. Patient is agreeable and ready for discharge to home. Physical Examination General: Non-toxic, in no acute distress, appears stated age, overweight HEENT: NC/AT, anicteric sclerae, moist conjunctiva, no lid-lag, PERRLA Cardiovascular: S1/S2 wnl, no murmurs, rubs, or gallops Lungs: Clear to auscultation, normal respiratory effort, no accessory muscle use Abdominal: Soft, non-tender, non-distended, no guarding, rebound, or rigidity Skin: Warm, dry Extremities: No edema or contractures Psychiatric: Alert and oriented to person, place and time, appropriate affect Neuro: CN II-XII grossly intact, Strength 5/5 in all 4 extremities, Speech intact, Sensation to light touch grossly intact throughout Discharge diagnosis: Unstable angina status post stent to LAD, bradycardia, hypertension, hyperlipidemia A total of 40 minutes of time were spent preparing this complex discharge summary. Patient Condition at Discharge: Stable Plan - Discharge Summary Discharge Rx Participant: No New Discharge Prescriptions: New Nitroglycerin Sl Tabs [Nitrostat] 0.4 mg SUBLINGUAL Q5M PRN #25 tab PRN Reason: Chest Pain Clopidogrel [Plavix] 75 mg PO DAILY #90 tab Continue Aspirin EC [Ecotrin Low Dose] 162 mg PO DAILY Atorvastatin [Lipitor] 40 mg PO HS Discontinued Metoprolol Tartrate 25 mg PO BID Discharge Medication List Aspirin EC [Ecotrin Low Dose] 162 mg PO DAILY 01/18/18 [History] Atorvastatin [Lipitor] 40 mg PO HS 09/17/20 [History] Clopidogrel [Plavix] 75 mg PO DAILY #90 tab 09/21/20 [Rx] Nitroglycerin Sl Tabs [Nitrostat] 0.4 mg SUBLINGUAL Q5M PRN #25 tab 09/21/20 [Rx] Follow up Appointment(s)/Referral(s): Atilio Lott MD [Primary Care Provider] - 1-2 days (Please call the office when it is open to make appointment) Galina Holguin MD [Family Provider] - 09/23/20 2:30 pm Patient Instructions/Handouts: *[facility] - After Heart Catheterization - Ladle Operator Instructions, Heart Healthy Diet (DC), Coronary Intravascular Stent Placement (DC), After Radial Heart Catheterization (GEN) Discharge Disposition: HOME SELF-CARE
--- NOTE | 2020-09-21 10:57 | ECHOS ---
Stress Test Results/Findings: Exam Performed: NM stress lexiscan cardiolite Exam Date: 09/18/20 Reason for Exam: Chest Pain Height: 5 ft 8 in Weight: 79.38 kg Protocol: Lexiscan Stage: na Duration of Exercise: na Resting Heart Rate: 48 Resting Blood Pressure: 142/83 Maximum Achieved Heart Rate: 89 Maximum Achieved Blood Pressure: 142/83 85% PMHR: 129 100% PMHR: 152 METS: na Technologist Comment: Stress Test Results/Findings: This is a 70-year-old gentleman with history of hypertension and ischemic heart disease being evaluated for symptoms of chest pain. Stress data: Baseline EKG showed sinus rhythm with normal KS and chronic aspiration. A standard dose of Lexiscan was infused. EKGs did not reveal any significant changes from baseline. Final impression: #1. Negative Lexiscan stress test #2. Report on the nuclear images to be provided by the radiologist. SAMUEL
--- NOTE | 2020-09-21 11:03 | PN ---
PROGRESS NOTE Mr. Araya is a 70-year-old male who presented with symptoms of chest discomfort, underwent myocardial perfusion imaging that was consistent with stress-induced ischemia. Underwent cardiac catheterization yesterday and was found to have borderline significant lesion in the LAD and the left circumflex. He underwent IFR on both of them. The left circumflex was nonsignificant. The LAD was and underwent stenting of the LAD. He is doing well this morning. He denies any chest pain. His breathing has been stable. He denies any dizziness or palpitation. He denies any nausea. He continues to be at this time on aspirin once a day, Lipitor 40 mg daily, Plavix 75 mg daily. PHYSICAL EXAMINATION: VITAL SIGNS: Blood pressure 130/80 with a heart rate in 50s. LUNGS: Clear. HEART: Regular rate and rhythm S1, S2. No S3 with systolic murmur. No diastolic murmur. No rub. ABDOMEN: Soft and nontender. EXTREMITIES: No edema. Right radial pulse intact. IMPRESSION: 1. Status post stenting of the left anterior descending. 2. Non-hemodynamically significant lesion left circumflex. 3. Patent stent in the right coronary artery. RECOMMENDATION: Patient should be able to be discharged home today and followed as an outpatient with Dr. Yulia Holguin. MMODL / IJN: [id number] /
== END 2020-09-21 11:25 | disposition home or self-care (01) | DRG 247 ==
LOC: EC 15:42 → 6NMEDSUR 18:09 → OBSVTOIN 09-21 08:49
PROVIDERS: ADMIT Internal Medicine; ATTEND Internal Medicine
PROC: B2111ZZ Fluoroscopy of Multiple Coronary Arteries using Low Osmolar Contrast (ICD-10-PCS; principal; 2020-09-20 10:30)
PROC: 027034Z Dilation of Coronary Artery, One Artery with Drug-eluting Intraluminal Device, Percutaneous Approach (ICD-10-PCS; principal; 2020-09-20 10:30)
PROC: 4A023N7 Measurement of Cardiac Sampling and Pressure, Left Heart, Percutaneous Approach (ICD-10-PCS; principal; 2020-09-20 10:30)
DX: T82.855A Stenosis of coronary artery stent, initial encounter (principal); I25.110 Atherosclerotic heart disease of native coronary artery with unstable angina pectoris; I10 Essential (primary) hypertension; I08.3 Combined rheumatic disorders of mitral, aortic and tricuspid valves; E78.5 Hyperlipidemia, unspecified; R00.1 Bradycardia, unspecified; T44.7X5A Adverse effect of beta-adrenoreceptor antagonists, initial encounter; M54.9 Dorsalgia, unspecified; I25.2 Old myocardial infarction; M19.90 Unspecified osteoarthritis, unspecified site; M41.9 Scoliosis, unspecified; E66.3 Overweight; Z68.26 Body mass index [BMI] 26.0-26.9, adult; Z79.82 Long term (current) use of aspirin; Z79.899 Other long term (current) drug therapy; Z87.39 Personal history of other diseases of the musculoskeletal system and connective tissue; Z87.19 Personal history of other diseases of the digestive system; Z87.448 Personal history of other diseases of urinary system; Z87.81 Personal history of (healed) traumatic fracture; Y84.0 Cardiac catheterization as the cause of abnormal reaction of the patient, or of later complication, without mention of misadventure at the time of the procedure; Z80.8 Family history of malignant neoplasm of other organs or systems; Z82.49 Family history of ischemic heart disease and other diseases of the circulatory system
CPT/HCPCS: 36415; 71046; 78452; 80048; 80053; 80061; 82550; 83690; 83735; 83880; 84484; 85025; 85379; 85610; 85730; 93005; 93017; 93306; 93458; 93571; 93572; 99285

== ENCOUNTER 2020-10-01 16:12 | Emergency (ER) | payer MEDICARE ==
[2020-10-01 16:22] VITALS: BP 133/83; PULSE 79; RESP 20; TEMP 97.5
--- NOTE | 2020-10-01 17:02 | ED ---
General Adult HPI - General Chief complaint: Skin/Abscess/Foreign Body Stated complaint: Lump on elbow, stent ten days ago Source: patient, family, RN notes reviewed, old records reviewed Mode of arrival: ambulatory Limitations: no limitations - History of Present Illness Initial comments: 70-year-old white male, alert and oriented 4 and well-appearing, presents to the emergency room with complaints of right elbow swelling for the past hour. Patient states that he was using his 02 and 1 more when he noticed that the right elbow swelling. He denies any pain there is no pain with movement of the joint. He denies any fevers. Patient states his concern was that he had a recent stent placed 10 days ago and they accessed through his right arm. Patient denies any other bleeding. -: hour(s) (1) Location: right, upper extremity Radiation: non-radiation Severity scale (1-10): 0 (Elbow) Associated Symptoms: other (Swelling) Treatments Prior to Arrival: none - Related Data Home Medications Medication Instructions Recorded Confirmed Aspirin EC [Ecotrin Low Dose] 162 mg PO DAILY 01/18/18 09/17/20 Atorvastatin [Lipitor] 40 mg PO HS 09/17/20 09/17/20 Previous Rx's Medication Instructions Recorded Clopidogrel [Plavix] 75 mg PO DAILY #90 tab 09/21/20 Nitroglycerin Sl Tabs [Nitrostat] 0.4 mg SUBLINGUAL Q5M PRN #25 tab 09/21/20 Allergies Allergy/AdvReac Type Severity Reaction Status Date / Time No Known Allergies Allergy Verified 10/01/20 16:21 Review of Systems ROS Statement: Those systems with pertinent positive or pertinent negative responses have been documented in the HPI. ROS Other: All systems not noted in ROS Statement are negative. Past Medical History Past Medical History: Coronary Artery Disease (CAD), Hyperlipidemia, Hypertension, Myocardial Infarction ([place]), Musculoskeletal Disorder, Osteoarthritis (OA) Additional Past Medical History / Comment(s): HX OF HEPATITIS, BACK PAIN, SCOLIOSIS, TORN RIGHT ROTATOR CUFF, RIB FX, SCOLIOSIS, HTN, LEFT KIDNEY CYST. Last Myocardial Infarction Date:: 2008 History of Any Multi-Drug Resistant Organisms: None Reported Past Surgical History: Ear Surgery, Heart Catheterization With Stent Additional Past Surgical History / Comment(s): PLASTIC SURGERY ON EAR A CHILD., 2 HEART CATHS WITH STENTS. 4 stents Past Anesthesia/Blood Transfusion Reactions: Motion Sickness Date of Last Stent Placement:: 2008 Past Psychological History: No Psychological Hx Reported Smoking Status: Never smoker Past Alcohol Use History: Rare Past Drug Use History: Marijuana - Past Family History Father History Unknown: Yes Family Medical History: Cancer, Coronary Artery Disease (CAD), Myocardial Infarc tion ([place]) Additional Family Medical History / Comment(s): SKIN CANCER Mother History Unknown: Yes Family Medical History: Cancer Additional Family Medical History / Comment(s): SKIN CANCER General Exam Limitations: no limitations General appearance: alert, in no apparent distress Head exam: Present: atraumatic, normocephalic, normal inspection Eye exam: Present: normal appearance, PERRL, EOMI. Absent: scleral icterus, conjunctival injection, periorbital swelling Pupils: Present: normal accommodation ENT exam: Present: normal exam, normal oropharynx, mucous membranes moist Neck exam: Present: normal inspection, full ROM. Absent: tenderness, meningismus, lymphadenopathy, thyromegaly Respiratory exam: Present: normal lung sounds bilaterally. Absent: respiratory distress, wheezes, rales, rhonchi, stridor, chest wall tenderness, accessory muscle use, decreased breath sounds, prolonged expiratory Cardiovascular Exam: Present: regular rate, normal rhythm, normal heart sounds. Absent: systolic murmur, diastolic murmur, rubs, gallop, clicks GI/Abdominal exam: Present: soft, normal bowel sounds. Absent: distended, tenderness, guarding, rebound, rigid Extremities exam: Present: full ROM, normal capillary refill. Absent: tenderness, pedal edema, calf tenderness Right Shoulder Exam: Present: full ROM Upper Arm exam: Present: full ROM Elbow exam: Present: full ROM, swelling, effusion. Absent: tenderness, abrasion, laceration, ecchymosis, deformity, crepitus, dislocation, erythema, pain w/ pronation/supination, tenderness over radial head (Bursitis) Forearm Wrist exam: Present: full ROM, ecchymosis (Postcardiac stent 10 days ago; bruising to the right breast from his dogs leash) Hand Wrist exam: Present: normal inspection, full ROM Neurosensory exam: Present: 2-point discrimination, radial nerve intact, ulnar nerve intact, median nerve intact Vascular: Present: normal capillary refill, radial pulse. Absent: vascular compromise Back exam: Present: normal inspection, full ROM. Absent: tenderness, CVA tenderness (R), CVA tenderness (L), muscle spasm, paraspinal tenderness, vertebral tenderness Neurological exam: Present: alert, oriented X3, CN II-XII intact Psychiatric exam: Present: normal affect, normal mood Skin exam: Present: warm, dry, intact, normal color. Absent: rash, cyanosis, diaphoretic, erythema, petechiae, pallor, mottled Course Vital Signs 10/01/20 16:19 Temperature 97.5 F L Pulse Rate 79 Respiratory 20 Rate Blood Pressure 133/83 O2 Sat by Pulse 97 Oximetry Medical Decision Making - Medical Decision Making Patient was riding 0 turned one more sleeping in his elbow multiple times without his knowledge. Patient states that there is no pain numbness or tingling. He has full range of motion. There is no erythema or signs of joint infection. This is bursitis of the right elbow. Patient offered pain medicine and declined stating there is no pain. Patient was given Wes wrap and directed to ice at home. He has an appointment with his primary care doctor on October 05. Patient was also given a referral to [facility]opedic associates. Case discussed with Dr. Walters who is agreeable to this plan of care Disposition Clinical Impression: Bursitis of right elbow Disposition: HOME SELF-CARE Condition: Good Instructions (If sedation given, give patient instructions): Elbow Bursitis (ED) Additional Instructions: Rest, ice and elevate. Use Wes wrap for compression. Follow-up with the primar care doctor as scheduled October 05. Return if worsening pain, fever or inability to move joint. Is patient prescribed a controlled substance at d/c from ED?: No Referrals: Atilio Lott MD [Primary Care Provider] - 1-2 days Boo Britton MD [STAFF PHYSICIAN] - 1-2 days Time of Disposition: 17:02
== END 2020-10-01 17:10 | disposition home or self-care (01) ==
LOC: EC 16:12
DX: M70.31 Other bursitis of elbow, right elbow (principal); I10 Essential (primary) hypertension; E78.5 Hyperlipidemia, unspecified; I25.2 Old myocardial infarction; I25.10 Atherosclerotic heart disease of native coronary artery without angina pectoris; M19.90 Unspecified osteoarthritis, unspecified site; M41.9 Scoliosis, unspecified; F12.90 Cannabis use, unspecified, uncomplicated; Z79.02 Long term (current) use of antithrombotics/antiplatelets; Z79.82 Long term (current) use of aspirin
CPT/HCPCS: 99283

== ENCOUNTER 2021-04-23 13:48 | Day surgery (SDC) | payer MEDICARE ==
[2021-04-20 15:19] VITALS: BMI 26.6
[~2021-04-23 13:48] MED LIST: LACTATED RINGERS 1,000 ML IV SCH
[2021-04-23 14:18] VITALS: RESP 16; TEMP 97.9
[2021-04-23] MEDS ORDERED: LIDOCAINE 1% INJ 10MG/ML (20 ML MDV) ONE (14:26)
[2021-04-23] MEDS ORDERED: PROPOFOL 10 MG/ML 20 ML VIAL IV ONE (14:26)
--- NOTE | 2021-04-23 14:40 | P.PCN ---
Date of Procedure: 04/23/21 Procedure(s) Performed: BRIEF HISTORY: Patient is a 70-year-old pleasant white male scheduled for an elective colonoscopy as a part of intermittent rectal bleeding for the last 2 months duration. PROCEDURE PERFORMED: Colonoscopy. PREOPERATIVE DIAGNOSIS: Intermittent rectal bleeding of 2 months duration. IV sedation per Anesthesia. PROCEDURE: After informed consent was obtained, the patient, was brought into the endoscopy unit. IV sedation was administered by Anesthesia under continuous monitoring. Digital rectal examination was normal. Initially the Olympus CF-160 flexible video colonoscope was then inserted in the rectum, gradually advanced into the cecum without any difficulty. Careful examination was performed as the scope was gradually being withdrawn. Ileocecal valve and the appendiceal orifice were visualized and appeared normal. Prep was excellent. Mucosa of the cecum, ascending colon, transverse colon, descending colon, sigmoid colon, and rectum appeared normal. At her sigmoid diverticulosis. Retroflexion was performed in the rectum and grade 2 internal hemorrhoids were seen. The patient tolerated the procedure well. IMPRESSION: Grade 2 internal hemorrhoids Scattered sigmoid diverticulosis No evidence of colorectal neoplasia . RECOMMENDATIONS: Findings of this examination were discussed with the patientas well as his family. He was advised to be a high-fiber diet and take fiber supplements a regular basis and avoid straining and constipation. He can have a repeat screening colonoscopy in 10 years.].
[2021-04-23] MEDS ORDERED: IV FLUID CONTINUATION 1,000 ML IV ONE (14:44)
[2021-04-23 15:05] VITALS: BP 158/91; PULSE 64
== END 2021-04-23 15:25 | disposition home or self-care (01) ==
LOC: ORWHC2ENDO 13:48
PROVIDERS: ATTEND Internal Medicine Gastroenterology
DX: K57.30 Diverticulosis of large intestine without perforation or abscess without bleeding (principal); K64.8 Other hemorrhoids
CPT/HCPCS: 45378; J2001; J2704

== ENCOUNTER 2023-08-17 12:11 | Emergency (ER) | payer MEDICARE ==
[2023-08-17] MEDS: KETOROLAC 15 MG/ML 1 ML VIAL IVP STA (13:20)
[2023-08-17] MEDS: SODIUM CHLORIDE 0.9% 1,000 ML IV STA (13:20)
[2023-08-17] MEDS: diphenhydrAMINE 50 MG/ML 1 ML VIAL IVP STA (13:22)
[2023-08-17] MEDS: METOCLOPRAMIDE 5 MG/ML 2 ML VIAL IVP STA (13:24)
[2023-08-17] MEDS: DEXAMETHASONE SOD PHOSPHATE 10 MG/ML 1 ML VIAL IVP STA (13:27)
[2023-08-17 13:37] LABS: Basophils % (A) 1 %; Eosinophils # (A) 0.2 k/uL (0-0.7); Eosinophils % (A) 2 %; HGB 15.8 gm/dL (13.0-17.5); Lymphocytes # (A) 1.7 k/uL (1.0-4.8); Lymphocytes % (A) 22 %; MCH 28.8 pg (25.0-35.0); MCHC 32.2 g/dL (31.0-37.0); MCV 89.6 fL (80.0-100.0); Mean Platelet Volume 8.6; Monocytes # (A) 0.7 k/uL (0-1.0); Monocytes % (A) 8 %; Neutrophils # (A) 5.3 k/uL (1.3-7.7); Neutrophils % (A) 66 %; Platelet Count 167 k/uL (150-450); RBC 5.47 m/uL (4.30-5.90); RDW 12.4 % (11.5-15.5); WBC 8.1 k/uL (3.8-10.6)
[2023-08-17 13:50] LABS: ALT 19 U/L (4-49); AST 26 U/L (17-59); African American GFR (CKD) 79 (>60 ml/min/1.73 sqM); Albumin 4.4 g/dL (3.5-5.0); Alkaline Phosphatase 81 U/L (38-126); Anion Gap 7 mmol/L; Blood Urea Nitrogen 31 mg/dL (9-20); C Reactive Protein <0.5 mg/dL (<1.0); Calcium 9.1 mg/dL (8.4-10.2); Carbon Dioxide 25 mmol/L (22-30); Chloride 107 mmol/L (98-107); Glucose 84 mg/dL (74-99); Non-African American GFR(CKD) 68 (>60 ml/min/1.73 sqM); Potassium 4.4 mmol/L (3.5-5.1); Sodium 139 mmol/L (137-145); Total Bilirubin 0.8 mg/dL (0.2-1.3)
--- NOTE | 2023-08-17 13:53 | ED ---
Headache HPI - General Chief Complaint: Headache Stated Complaint: Headache Time Seen by Provider: 08/17/23 12:59 Source: patient, RN notes reviewed Mode of arrival: ambulatory Limitations: no limitations - History of Present Illness Initial Comments: This is a 73-year-old male who presents to the emergency department for a headache. Patient reports headaches over the last month. These have been fairly constant but fluctuating in intensity. States that they tend to occur over the left temporal region and cause visual changes. Denies any nausea as sociated with this. Patient is concerned because he does not have any significant history of headaches. He is not taking anything for symptom control. MD Complaint: headache - Related Data Home Medications Medication Instructions Recorded Confirmed Aspirin EC [Ecotrin Low Dose] 81 mg PO DAILY 01/18/18 04/27/22 Atorvastatin [Lipitor] 40 mg PO HS 09/17/20 04/27/22 HYDROcodone/APAP 10-325MG [[place] 1 tab PO DAILY PRN 04/20/21 04/27/22 10-325] Metoprolol Tartrate 12.5 mg PO QAM 04/20/21 04/27/22 Previous Rx's Medication Instructions Recorded Clopidogrel [Plavix] 75 mg PO DAILY #90 tab 09/21/20 Nitroglycerin Sl Tabs [Nitrostat] 0.4 mg SUBLINGUAL Q5M PRN #25 tab 09/21/20 Ketorolac [Toradol] 10 mg PO Q6HR PRN #15 tab 08/17/23 Allergies Allergy/AdvReac Type Severity Reaction Status Date / Time No Known Allergies Allergy Verified 08/17/23 12:15 Review of Systems ROS Statement: Those systems with pertinent positive or pertinent negative responses have been documented in the HPI. ROS Other: All systems not noted in ROS Statement are negative. Past Medical History Past Medical History: Coronary Artery Disease (CAD), Cancer, CVA/TIA, Hy perlipidemia, Hypertension, Liver Disease, Myocardial Infarction ([place]), Osteoarthritis ([place]) Additional Past Medical History / Comment(s): HX OF HEPATITIS, BACK PAIN, SCOLIOSIS, bulging disks, blood in stool couple months ago, hx kidney stones, skin cancer, hx fx ribs Last Myocardial Infarction Date:: 2008 History of Any Multi-Drug Resistant Organisms: None Reported Past Surgical History: Ear Surgery, Heart Catheterization With Stent Additional Past Surgical History / Comment(s): PLASTIC SURGERY ON EAR A CHILD., 5 cardiac stents, pain clinic procdures Past Anesthesia/Blood Transfusion Reactions: Motion Sickness Date of Last Stent Placement:: 09/2020 Past Psychological History: No Psychological Hx Reported Smoking Status: Never smoker Past Alcohol Use History: None Reported Past Drug Use History: Marijuana - Past Family History Father History Unknown: Yes Family Medical History: Cancer, Coronary Artery Disease (CAD) Additional Family Medical History / Comment(s): SKIN CANCER Mother History Unknown: Yes Family Medical History: Cancer Additional Family Medical History / Comment(s): SKIN CANCER General Exam Limitations: no limitations General appearance: alert, in no apparent distress Head exam: Present: atraumatic, normocephalic, normal inspection Eye exam: Present: normal appearance, PERRL, EOMI. Absent: scleral icterus, conjunctival injection, periorbital swelling Respiratory exam: Present: normal lung sounds bilaterally. Absent: respiratory distress, wheezes, rales, rhonchi, stridor Cardiovascular Exam: Present: regular rate, normal rhythm, normal heart sounds. Absent: systolic murmur, diastolic murmur, rubs, gallop, clicks Neurological exam: Present: alert, oriented X3, CN II-XII intact Psychiatric exam: Present: normal affect, normal mood Skin exam: Present: warm, dry, intact, normal color. Absent: rash Course Vital Signs 08/17/23 08/17/23 08/17/23 12:13 14:13 14:58 Temperature 98.1 F 97.9 F Pulse Rate 77 72 66 Respiratory 20 18 18 Rate Blood Pressure 159/92 134/80 120/70 O2 Sat by Pulse 99 98 97 Oximetry Medical Decision Making - Medical Decision Making This is a 73 year old male who presents to the emergency department for a he adache. Was pt. sent in by a medical professional or institution? @ -No Did you speak to anyone other than the patient for history? @ -No Did you review nursing and triage notes? @ -Yes, and I agree, it is accurate with regards to the patient's symptoms. Were old charts reviewed? @ -No Differential Diagnosis? @ -Differential Headache: Migraine, tension, cluster, carbon monoxide, central venous thrombosis, pension karma temporal arteritis, acute closure glaucoma, intercranial hemorrhage, mastoiditis, sinusitis, head injury, this is not meant to be an all-inclusive list. EKG interpreted by me (3pts min.)? @ -Not obtained X-rays interpreted by me (1pt min.)? @ -Not obtained CT interpreted by me (1pt min.)? @ -CT scan of the brain obtained. My interpretation identifies no evidence of an acute intracranial hemorrhage. U/S interpreted by me (1pt. min.)? @ -Not obtained What testing was considered but not performed? (CT, X-rays, U/S, labs)? Why? @ -None What meds were considered but not given? Why? @ -None Did you discuss the management of the patient with other professionals? @ -No Did you reconcile home meds? @ -No Was smoking cessation discussed for >3mins.? @ -No Was critical care preformed (if so, how long)? @ -No Were there social determinants of health that impacted care today? How? (Homelessness, low income, unemployed, alcoholism, drug addiction, transportation, low edu. Level, literacy, decrease access to med. care, senior care, rehab)? @ -No Was there de-escalation of care discussed even if they declined? (Discuss DNR or withdrawal of care, Hospice)? @ -No What co-morbidities impacted this encounter? (DM, HTN, Smoking, COPD, CAD, Cancer, CVA, Hep., AIDS, mental health diagnosis, sleep apnea, morbid obesity)? @ -CAD, HLD, HTN Was patient admitted / discharged? @ -Discharged. Lab work unremarkable. CT scan of the brain obtained revealing no acute process. Patient treated with IV fluids, Toradol, Reglan, and Benadryl, with significant improvement in symptoms. Discussed that the cause of his headaches is not currently clear. He was advised to have close follow-up with his primary care provider for further evaluation. Prescription for Toradol provided with dosing instructions reviewed for any additional headaches. Patient discharged home in stable condition. Undiagnosed new problem with uncertain prognosis? @ -None Drug Therapy requiring intensive monitoring for toxicity (Heparin, Nitro, Insulin, Cardizem)? @ -None Were any procedures done? @ -None Diagnosis/symptom? @ -Headache Acute, or Chronic, or Acute on Chronic? @ -Acute Uncomplicated (without systemic symptoms) or Complicated (systemic symptoms)? @ -Uncomplicated Side effects of treatment? @ -None Exacerbation, Progression, or Severe Exacerbation] @ -Not applicable Poses a threat to life or bodily function? @ -No Return precautions reviewed in depth, the patient is instructed to return to the emergency department with any new, worsening, or concerning symptoms. Patient verbalized understanding. This case was discussed in detail with the attending ED physician, Dr. Jj. Presentation, findings, and treatment plan discussed in detail as well. - Lab Data Result diagrams: 08/17/23 13:09 08/17/23 13:09 Lab Results 08/17/23 08/17/23 08/17/23 Range/Units 13:09 13:09 13:09 WBC 8.1 (3.8-10.6) k/uL RBC 5.47 (4.30-5.90) m/uL Hgb 15.8 (13.0-17.5) gm/dL Hct 49.0 (39.0-53.0) % MCV 89.6 (80.0-100.0) fL MCH 28.8 (25.0-35.0) pg MCHC 32.2 (31.0-37.0) g/dL RDW 12.4 (11.5-15.5) % Plt Count 167 (150-450) k/uL MPV 8.6 Neutrophils % 66 % Lymphocytes % 22 % Monocytes % 8 % Eosinophils % 2 % Basophils % 1 % Neutrophils # 5.3 (1.3-7.7) k/uL Lymphocytes # 1.7 (1.0-4.8) k/uL Monocytes # 0.7 (0-1.0) k/uL Eosinophils # 0.2 (0-0.7) k/uL Basophils # 0.0 (0-0.2) k/uL Sodium 139 (137-145) mmol/L Potassium 4.4 (3.5-5.1) mmol/L Chloride 107 (98-107) mmol/L Carbon Dioxide 25 (22-30) mmol/L Anion Gap 7 mmol/L BUN 31 H (9-20) mg/dL Creatinine 1.09 (0.66-1.25) mg/dL Est GFR (CKD-EPI)AfAm 79 (>60 ml/min/1.73 sqM) Est GFR (CKD-EPI)NonAf 68 (>60 ml/min/1.73 sqM) Glucose 84 (74-99) mg/dL Calcium 9.1 (8.4-10.2) mg/dL Phosphorus 3.0 (2.5-4.5) mg/dL Magnesium 2.0 (1.6-2.3) mg/dL Total Bilirubin 0.8 (0.2-1.3) mg/dL AST 26 (17-59) U/L ALT 19 (4-49) U/L Alkaline Phosphatase 81 (38-126) U/L C-Reactive Protein <0.5 (<1.0) mg/dL Total Protein 7.0 (6.3-8.2) g/dL Albumin 4.4 (3.5-5.0) g/dL Influenza Type A (PCR) Not Detected (Not Detectd) Influenza Type B (PCR) Not Detected (Not Detectd) RSV (PCR) Not Detected (Not Detectd) SARS-CoV-2 (PCR) Not Detected (Not Detectd) - Radiology Data Radiology results: report reviewed, image reviewed Disposition Clinical Impression: Headache Disposition: HOME SELF-CARE Instructions (If sedation given, give patient instructions): Acute Headache (ED) Additional Instructions: Return to the emergency department with any new, worsening, or concerning symptoms. Take the Toradol with Tylenol as needed for pain relief. If you choose to take the Toradol, do not take any other anti-inflammatories such as ibuprofen, take one or the other. Follow up with your primary care provider in 1-2 days. Prescriptions: Ketorolac [Toradol] 10 mg PO Q6HR PRN #15 tab PRN Reason: Nausea And Vomiting Is patient prescribed a controlled substance at d/c from ED?: No Referrals: Atilio Lott MD [Primary Care Provider] - 1-2 days Time of Disposition: 14:37
--- NOTE | 2023-08-17 14:26 | CT ---
EXAMINATION TYPE: CT brain wo con DATE OF EXAM: 08/17/2023 COMPARISON: To 823 INDICATION: headache x3 weeks. DLP: 1150.4 mGycm, Automated exposure control for dose reduction was used. CONTRAST: None CT of the brain is performed utilizing 3 mm thick sections through the posterior fossa and 3 mm thick sections through the remaining calvarium. Study is performed within 24 hours of arrival to the hosp [facility]. No abnormal hyperdensity is present to suggest an acute intracranial hemorrhage. No mass lesion is evident. No acute infarcts are evident. Ventricles and sulci are appropriate for the patient age. Paranasal sinuses and mastoid air cells within the [id number] are clear. IMPRESSION: 1. No acute intracranial process. Follow-up MRI can be performed as clinically indicated.
[2023-08-17 14:51] VITALS: RESP 18
[2023-08-17 15:43] VITALS: BP 120/70; PULSE 66; TEMP 97.9
[2023-08-17 18:20] LABS: Erythrocyte Sedimentation Rate 12 mm/Hr (0-20)
== END 2023-08-17 15:06 | disposition home or self-care (01) ==
LOC: EC 12:11
DX: R51.9 Headache, unspecified (principal); I25.10 Atherosclerotic heart disease of native coronary artery without angina pectoris; E78.5 Hyperlipidemia, unspecified; I10 Essential (primary) hypertension; Z11.52 Encounter for screening for COVID-19; Z79.899 Other long term (current) drug therapy
CPT/HCPCS: 99284 ×2; 96374 ×2; 96375 ×3; 96361 ×2; 36415; 80053; 85652; 83735; 84100; 85025; 86140; 87636; 70450; J1200; J2765; J1885

== ENCOUNTER → 2023-09-07 | Outpatient (CLI) | payer MEDICARE ==
--- NOTE | 2023-09-07 11:39 | MR ---
EXAMINATION TYPE: MR angio head wo con DATE OF EXAM: 09/07/2023 11:13 AM CLINICAL INDICATION:Male, 73 years old with history of R51.9 headache, Headaches, dizziness. COMPARISON: 04/28/2022 Technical: 3-D [id number] Axial with MIP reconstruction created on a separate workstation.. IV Contrast: None Findings: Vertebral arteries: The vertebral arteries are patent. Vertebral arteries are: Poor visualization of the right vertebral artery series 201 image 21. Left do minant vertebral artery. Basilar artery: The basilar artery is intact. The basilar artery bifurcation is normal. Internal Carotid arteries: The cervical, petrous, cavernous and supraclinoid segments are normal. DEQUAN: Patent with no evidence of aneurysm. ACOM: Present without evidence of aneurysm. MCA: Patent with no evidence of aneurysm. COMPUTER GAME DESIGNER: Patent with no evidence of aneurysm. PCOM: Hypoplastic bilaterally. Right internal auditory canal type III vascular loop. IMPRESSION: 1. Poor visualization of the intracranial portion of the right vertebral artery which could be due t o slow flow/diminutive appearance/MRI technique. Consider further evaluation with CT angiogram for co mparison with 04/28/2022 evaluation. Otherwise, No evidence of aneurysm or significant stenosis. 2. Right internal auditory canal type III vascular loop.
--- NOTE | 2023-09-07 13:04 | MR ---
EXAMINATION TYPE: MR brain wo con DATE OF EXAM: 09/07/2023 11:34 AM CLINICAL INDICATION:Male, 73 years old with history of R51.9 headache; PHH, Headaches, dizziness. COMPARISON: 08/17/2023. TECHNIQUE: Multi planar, multi sequence imaging was performed through the brain including: T1, T2, In version recovery, Diffusion weighted imaging, and gradient echo imaging. No gadolinium was given. FINDINGS: Mild cerebral atrophy with proportional dilation of ventricular system. Scattered foci of high T2 s ignal intensity are seen within the periventricular white matter. Midline structures show no abnormal ity. Diffusion-weighted imaging shows no evidence of restricted diffusion. The susceptibility weighte d images do not reveal any evidence for micro-hemorrhage. Pulmonary artifact within the right parieta l/posterior frontal lobe compatible with omental venous anomaly. The bone marrow signal is within normal limits. Paranasal sinuses and mastoid air cells: Mild scattered paranasal sinus disease. Visualized orbits: Orbital contents are intact. IMPRESSION: 1. No evidence of intracranial mass or acute/subacute infarct. 2. 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 3. Nonspecific white matter changes, likely secondary to small vessel ischemic disease.
== END | disposition home or self-care (01) ==
LOC: RADMRIMAIN 10:24
PROVIDERS: ATTEND Family Medicine
DX: Q14.2 Congenital malformation of optic disc (principal); I67.82 Cerebral ischemia
CPT/HCPCS: 70544; 70551